=== PATIENT | male | born 1945 | race Caucasian/White ===

== ENCOUNTER 2018-02-03 14:19 | Outpatient (RCR) | payer MEDICARE, SELFPAY ==
--- NOTE | 2018-02-03 15:47 | HP.PTEVAL_ITS ---
Patient's Visit Information SUMEET QUIGLEY is a 72 year old M referred to Physical Therapy by JALEN PAREDES with a diagnosis of Gait instability. Date of Evaluation: 02/03/18 Physical Therapist: Guanakito Nathan PT, - Visit Plan Plan: Discharge - Subjective Subjective: Pt notes he had cancer 3 years ago. Pt reports half way through treatments, he began to notice decreased balance. Pt reports he has had several falls, and notes he falls at least twice a week. Pt reports he tends to fall backwards a lot. Pt reports his vision is not very good and he needs glasses, but does not want to wear any. Pt reports he has good feeling in his feet. Pt notes he has never used an AD and does not want to use one at this time. Pt reports his goal is to get better balance at this time. No pain this date. - Objective Neuro: B LE sensation is WNL to light touch. B pat tendon reflex= 2/3. MMT: B LE 5/5 throughout. Gait: Pt has a neuropathic gait pattern where he lack forward shift. Pt has a normal gait pattern with use of WW. Stairs: No difficulty - Rehabilitation Potential Physical Therapy Diagnosis: Pt has gait instability due to a neuropathic gait pattern Rehabilitation Potential: Good - Anticipated Interventions Thank you for the opportunity to evaluate your patient. For Medicare and Medicare HMO plans, please review the plan of care and approve it. It will need to be FAXED BACK to us at [phone] for Medicare purposes. Please let me know if there are questions or concerns regarding this plan of care. Physician Signature: Date:
== END 2018-02-03 19:00 | disposition home or self-care (01) ==
LOC: PT 14:19
DX: R26.81 Unsteadiness on feet (principal)
CPT/HCPCS: 97161

== ENCOUNTER 2019-10-13 07:32 | Emergency (ER) | payer MEDICARE, SELFPAY ==
[2019-10-13 07:33] VITALS: BP 164/83; PULSE 62; RESP 24; TEMP 37.1; O2SAT 98; BMI 24.4
--- NOTE | 2019-10-13 07:41 | CT_ITS ---
STUDY: CT ABDOMEN AND PELVIS WITHOUT CONTRAST REASON FOR EXAM: Male, 74 years old. Right flank pain today. Hx lung cancer. RADIATION DOSAGE (If Supplied By Facility): CTDIvol = ( 10.87 ) mGy, DLP = ( 586.72 ) mGycm TECHNIQUE: Transaxial images were obtained from the dome of the diaphragm to the symphysis pubis without oral contrast, and without intravenous contrast. Sagittal and coronal images were reconstructed. Individualized dose optimization techniques were used for this CT. COMPARISON: Comparison is made with prior study dated June 16, 2014. FINDINGS: There is a 3 cm x 2.1 cm bulla in the medial aspect of the left lower lobe as well as a tiny left pleural effusion. Coronary artery calcification. Tiny pericardial effusion. Normal liver. Normal gallbladder and extrahepatic biliary system. Normal spleen. Normal pancreas. Normal bilateral adrenal glands. Left perinephric stranding. The right kidney is engorged. There is a 7.2 mm calculus in the upper pole calyx of the right kidney. Mild degree of right hydronephrosis due to a 2 mm calculus in the midportion of the right ureter. Normal left kidney. There is a small hiatal hernia. Normal small intestine. There are multiple colonic diverticula consistent with diverticulosis. The appendix is visualized and appears normal. There is diffuse atherosclerotic calcification of the abdominal aorta and its major visceral branches, without a demonstrated aortic aneurysm. There is evidence of aneurysmal dilatation of the right common iliac artery. This measures 3.2 cm x 3 cm. Normal inferior vena cava. Normal retroperitoneum. Normal urinary bladder. Normal abdominal wall. There are diffuse degenerative changes of the visualized lumbar spine. 40% loss of height of the L5 vertebrae. CT/Abdomen/Pelvis without Cont IMPRESSION: Right hydronephrosis and perinephric stranding due to a 2 mm calculus in the midportion of the right ureter. 7.2 mm calculus in the upper pole calyx of the right kidney. Aneurysmal dilatation of the right common iliac artery. Small pericardial effusion. Electronically Signed: Santi Herrera, at 9:11 EDT , Service support ,
--- NOTE | 2019-10-13 07:42 | ED.VISSUMM ---
- ER Visit Summary Date of Service: 10/13/19 Chief Complaint: [Right flank pain] History of Present Illness: The patient is a 74 M [presents the emergency department with right-sided abdominal pain that started this morning around 5 AM. Patient states the pain came on suddenly and woke him up from sleep. Patient states he vomited 3-4 times. Currently he rates his pain a 5 out of 10. Patient has no history of kidney stones. He is not had any abdominal surgeries. Patient has remote history of lung cancer. Patient continues to smoke. Patient denies urinary symptoms. Patient denies blood in the stool or black tarry stool. Patient denies any fevers or recent illness. Patient felt well prior to going to bed. Patient is nonambulatory.] Physical Examination: [HEENT-PERRLA, EOMI. Cranial nerves II through XII grossly intact. TMs clear. Mucous membranes moist. No adenopathy. Cardiovascular-regular rate and rhythm without murmur or ectopy Lungs-clear to auscultation, chest wall stable without crepitus or subcu emphysema Abdomen-normoactive bowel sounds, soft. Patient has tenderness to the right lower quadrant as well as right upper quadrant. Some mild CVA tenderness on the right. There is no rebound, rigidity, or pedal signs. Extremities-intact ?4, normal range of motion, normal pulses, atraumatic] Test Results: [CBC with differential was normal. Chemistries unremarkable. LFTs were normal. Lactate was slightly elevated 2.3. CT flank showed a 2 mm stone mid right ureter with hydro-nephrosis and some perinephric stranding. Patient also incidentally had a small pericardial effusion. Patient also had a right common iliac artery aneurysm measuring 3.2 x 3 cm.] Urinalysis showed 50-100 RBCs with no signs of infection. Emergency Department Course and Treatment: [On arrival patient was medicated with morphine 4 mg IV, Zofran 4 mg IV, and Toradol 10 mg IV. Patient's pain resolved. Patient advised of findings on CT. The stone is small and there is a greater than 90% chance that he will pass it on his own. Patient was advised of the right common iliac artery aneurysm and recommendation to follow-up with vascular surgeon for follow-up within the next 6 months. The finding of the aneurysm is incidental and do not feel that it is symptomatic.] Treatment Plan: [Patient will be given urine strainers. Patient will be given a prescription for Naprosyn as well as [place]. Patient given referral to urology for follow-up.] Disposition: [Discharged home in stable condition] Impression: [Urolithiasis] This note was generated with [employer] dictation software. It may contain incorrect words, spelling, and punctuation that were not noted in review of the chart prior to signing ED Disposition - Plan for ED Patient: [facility] [Primary Care Provider] -
[2019-10-13 07:56] LABS: Absolute Lymphocyte Count 0.79 X10^3/uL (0.83-4.51); Absolute Neutrophil Count 6.4 X10^3/uL (2.0-7.7); Basophil# 0.03 X10^3/uL; Basophil% 0.4 % (0-1); Eosinophil# 0.12 X10^3/uL; Eosinophils% 1.5 % (0-5); Hematocrit 45.6 % (40-54); Hemoglobin 14.7 g/dL (13.0-16.5); Lymphocyte # 0.79 X10^3/ul (4.0); Lymphocyte % 9.9 % (19-41); Mean Corp Hgb Conc 32.2 g/dL (32-36); Mean Corpuscular Hgb 30.6 pg (27.0-32.0); Mean Platelet Vol. 9.7 fl (6.2-12.0); Monocyte% 7.5 % (0-10); NRBC Flagged by Analyzer 0 % (0-5); Neutrophil # 6.44 X10^3/uL (2.7-7.7); Neutrophil % 80.4 % (47-70); Platelet Count 206 K/mm3 (150-450); RBC Distribution Width CV 13.7 % (11.6-14.6); RBC Distribution Width SD 48.1 fl (35.1-43.9)
[2019-10-13] MEDS: Ondansetron 4 MG/2 ML Vial IV (08:01)
[2019-10-13] MEDS: Ketorolac 30 MG/ML Syringe 10 MG IV (08:02)
[2019-10-13] MEDS: Morphine 4 MG/ML Syringe IV (08:04)
[2019-10-13] MEDS: 0.9% Normal Saline 1,000 ML 125 ML IV (08:04)
[2019-10-13 08:13] LABS: ALB/GLOB Ratio 1.2 RATIO (0.9-2.4); AST(SGOT) 17 U/L (15-37); Alanine Aminotransfer ALT/SGPT 19 U/L (16-61); Albumin, Serum 3.9 g/dL (3.2-5.0); Alkaline Phosphatase 103 U/L (45-117); Anion Gap 8 (5-15); BUN 15 mg/dL (7-18); BUN/Creat Ratio 15.7 RATIO (10-20); Calcium,Total 9.3 mg/dL (8.5-10.1); Chloride 109 mmol/L (98-107); Creatinine, Serum 0.96 mg/dL (0.70-1.30); EST Glomerular Filtration Rate 81 mL/min (>60); Est Glom Filt Rate - Afr Amer 98 mL/min (>60); Estimated Creatinine Clearance 71.85 ml/min; Globulin 3.3 g/dL (2.2-4.2); Glucose 134 mg/dL (74-106); Potassium 3.5 mmol/L (3.5-5.1); Protein, Total 7.2 g/dL (6.4-8.2); Sodium Level 145 mmol/L (136-145)
[2019-10-13 08:46] LABS: Lactic Acid 2.3 mmol/L (0.4-1.9)
--- NOTE | 2019-10-13 09:21 | ED.RN ---
dr gibson lactic acid. no further orders pending at this time. continue current plan of care
[2019-10-13 09:39] LABS: Color, Urine Yellow (Yellow); Glucose, Dipstick Normal (Normal); Ketone-Dipstick 5 mg/dl (Negative); Leukocyte Esterase-Dipstick Negative /ul (Negative); Nitrite-Dipstick Negative (Negative); Occult Blood-Urine 250 /ul (Negative); Protein-Dipstick 15 mg/dl (Negative); Specific Gravity, Urine 1.015 (1.002-1.030); Urine Bilirubin Dipstick Negative (Negative); Urine Clarity Sl. Cloudy (Clear); Urine Urobilinogen Normal (Normal); Urine pH 6.5 (5.0 - 8.0)
[2019-10-13 09:58] LABS: Red Blood Cells-Urine 50-100 SEEN /hpf (0-5)
[2019-10-13 09:59] LABS: Bacteria 1+ /hpf (None Seen); Mucous, Urine 1+ /hpf (<or=2+); Squamous Epithelial Cells - UA 0-5 SEEN /hpf (0-5); White Blood Cells 0-5 SEEN /hpf (0-5)
[2019-10-13 10:01] LABS: Triple Phosphate Crystals Ur 1+ /hpf (<or=1+)
--- NOTE | 2019-10-13 10:04 | ED.DEP ---
ED Disposition - Plan for ED Patient: Instructions: ED Renal Stone w Colic Prescriptions: Naproxen [Naprosyn] 500 mg PO BID PRN #20 tab Transmission Status: Pending to [facility]RA[facility] Hydrocodone Bitart/Apap 5-325 [Morrison 5MG-325MG] 1 tablet PO Q4H PRN PRN 2 Days #15 tablet PRN Reason: Pain Transmission Status: Received by [facility]AN [facility]RA[facility]errals[facility] [Primary Care Provider] - Bright Lee MD [STAFF PHYSICIAN] - 3-5 Days
[2019-10-13 10:19] VITALS: BP 140/79; PULSE 59; RESP 18; O2SAT 96
[2019-10-13 11:03] VITALS: BP 146/52; PULSE 71; RESP 20; O2SAT 97
--- NOTE | 2019-10-13 11:16 | ED.RN ---
THIS NURSE REVIEWED D/C INSTRUCTIONS WITH PT. PT VERBALIZED UNDERSTANDING OF INSTRUCTIONS. IV D/C. IV CATHETER INTACT. PT TOLERATED WELL. PT DENIES FURTHER NEEDS OR QUESTIONS AT THIS TIME. REPORT GIVEN TO EMS CREW
[2019-10-13 12:13] LABS: Reflex Lactate? Y
== END 2019-10-13 11:17 | disposition home or self-care (01) ==
LOC: ED 08:50
PROVIDERS: Emergency Provider Emergency Medicine
DX: N13.2 Hydronephrosis with renal and ureteral calculous obstruction (principal); I31.3 Pericardial effusion (noninflammatory); I72.3 Aneurysm of iliac artery; Z85.118 Personal history of other malignant neoplasm of bronchus and lung; Z72.0 Tobacco use
CPT/HCPCS: 74176; 80053; 81001; 83605; 85025; 96361; 96374; 96375; 99285; J7030; A4216; J2405

== ENCOUNTER 2020-07-24 14:46 | Outpatient (RCR) | payer MEDICARE, SELFPAY ==
[2020-07-24] MEDS: COVID-19 VACC, MRNA(PFIZER)/PF 30 MCG/0.3 ML SYRINGE IM (08:33)
[2020-08-14] MEDS: COVID-19 VACC, MRNA(PFIZER)/PF 30 MCG/0.3 ML SYRINGE IM (08:18)
== END 2020-10-23 23:59 ==
LOC: IMMUN 14:46
PROVIDERS: Referring Provider Family Medicine; Visit Provider Family Medicine
DX: Z23 Encounter for immunization (principal)
CPT/HCPCS: 0001A; 0002A; 91300

== ENCOUNTER 2021-11-10 03:37 | Emergency (ER) | payer MEDICARE, SELFPAY ==
[2021-11-10 03:38] VITALS: BP 153/90; PULSE 78; RESP 18; TEMP 36.6; O2SAT 98; BMI 24.0
--- NOTE | 2021-11-10 03:47 | ED.VIS.LOWEX ---
HPI History of Present Illness Chief Complaint: Fall Narrative Narrative: 76-year-old male presenting with right hip pain. He states in the right inguinal region. He states he has a history of falls and over the last couple days has fallen but now he notes his pain in the right inguinal area. He called EMS to come help him up. Apparently he sometimes walks and sometimes uses a wheelchair. They helped him to his wheelchair however he was complaining of pain. He was able to stand and transfer to the cot apparently. He denies head injury or LOC. He feels otherwise well. He has a history of abnormal gait and falls in the past [facility] Medical History Insomnia Lung cancer Home Medications ascorbic acid (vitamin C) 500 mg tablet 500 mg PO DAILY 12/07/14 [History Last Taken Unknown] multivitamin with folic acid 400 mcg tablet 1 tab PO DAILY 12/07/14 [History Last Taken Unknown] amlodipine 5 mg tablet 5 tab PO DAILY 11/10/21 [History Last Taken Unknown] temazepam 15 mg capsule (Restoril) 15 mg PO QHS PRN sleep 11/10/21 [History Last Taken Unknown] Allergy/AdvReac Type Severity Reaction Status Date / Time No Known Allergies Allergy Verified 10/23/20 14:50 Family History Father Myocardial infarction Brother Shanice Gehrig disease Social History Smoking Status: Current every day smoker tobacco type: cigarettes alcohol intake: current alcohol intake frequency: holidays/special occasions only Alcohol type: beer substance use type: does not use what type of physical activity do you participate in: none ROS ROS ED Constitutional Constitutional ED: Denies chills or fever(s) Eyes Eyes: Denies change in vision or diplopia ENT ENT ED: Denies rhinorrhea or sore throat Cardiovascular Cardiovascular: Denies chest pain or palpitations Respiratory/Chest Respiratory/Chest: Denies cough or dyspnea Gastrointestinal Gastrointestinal: Denies abdominal pain or constipation Genitourinary Genitourinary ED: Denies dysuria Musculoskeletal Musculoskeletal: Reports other Details: Right hip pain Integumentary Denies abscess Neurologic Neurologic: Denies headache(s) Psychiatric Psychiatric: Denies anxiety or depression EXAM Physical Exam Const Vital Signs: 11/10/21 03:38 11/10/21 03:42 11/10/21 05:34 Temperature 98 F 98.0 F Temperature Source Oral Pulse Rate 78 66 Respiratory Rate 18 18 Respiratory Effort Normal Non-Labored Respiratory Depth Normal Respiratory Pattern Normal Blood Pressure 153/90 H 130/66 H Blood Pressure Mean 111 87 Pulse Ox 98 94 Oxygen Delivery Method Room Air 11/10/21 05:38 Temperature Temperature Source Pulse Rate Respiratory Rate Respiratory Effort Respiratory Depth Respiratory Pattern Blood Pressure 139/84 H Blood Pressure Mean 102 Pulse Ox Oxygen Delivery Method Positive well nourished General Appearance ED: NAD HEENT Reports moist mucous membranes Resp normal respiratory effort Auscultation: Negative for rales, rhonchi or wheezes Cardio regular rate and regular rhythm Extremity Extremity Narrative: Tenderness to palpation in the right inguinal region and right gluteal region. There is no pain over the greater trochanter. The right leg is not shortened and externally rotated. Patient unable to flex his hip off the bed. Neuro oriented x3 and CN's II-XII intact bilaterally Sensorium / Orientation: alert Psych mental status grossly normal Skin Lesions: no lesions Rashes: no rashes MDM MDM MDM Narrative Medical decision making narrative: -year-old male with history of gait instability with regular falls presents after having increased pain in the right hip after falling overnight. EMS transported him because he was having pains when they transported him to his wheelchair which he uses from time to time. Patient given morphine and Zofran. Blood work is obtained and his CBC and BMP are unremarkable. My interpretation of the right hip x-ray shows a right acetabular fracture involving the right pubic rami both upper and lower with displacement medially. The radiologist reads this as well and agrees. I spoke with Dr. Jimenez who stated that they do not have anybody who can care for this kind of complex fracture at [facility]. [facility] and Dr. Briseno accepted transfer. I did obtain a CT of the pelvis which did show complex right acetabular fractures with involvement of the roof, anterior, posterior, and medial acetabulum. There is some mild intrapelvic and extraperitoneal hematomas. There is a complex inferior right pubic rami fracture which is comminuted. I did call back Dr. Briseno to discuss the CT findings. Patient is clinically stable and his blood work is normal. She recommended to continue to transfer him to the medical floor. She is the on-call trauma surgeon and will see him on arrival. Estimated transport time is 0 730. Impression: 1. Mechanical fall 2. History of gait instability 3. Comminuted right acetabular fracture 4. Comminuted right inferior pubic rami fracture Lab Data Attestation: I reviewed the patient's lab results. Labs: Laboratory Results - last 24 hr 11/10/21 11/10/21 03:50 03:50 WBC 7.5 RBC 4.20 L Hgb 13.3 Hct 40.9 MCV 97.4 H MCH 31.7 MCHC 32.5 RDW Std Deviation 47.3 H RDW Coeff of Roberto 13.2 Plt Count 146 L MPV 10.0 Immature Gran % (Auto) 0.300 Neut % (Auto) 69.8 Lymph % (Auto) 11.3 L [place] % (Auto) 12.2 H Eos % (Auto) 5.7 H Baso % (Auto) 0.7 Absolute Neuts (auto) 5.3 Absolute Lymphs (auto) 0.85 Nucleated RBC % 0 Sodium 140 Potassium 3.8 Chloride 108 H Carbon Dioxide 23.0 Anion Gap 9 BUN 20 H Creatinine 1.05 Estim Creat Clear Calc 63.64 Est GFR (MDRD) Af Amer 88 Est GFR (MDRD) Non-Af 73 BUN/Creatinine Ratio 19.0 Glucose 86 Calcium 8.9 Radiography Diagnostic Testing: Clinical Impression(s) from Imaging Studies Hip/Pelvis X-Ray 11/10/21 04:00 IMPRESSION: 1. Intact right femur. 2. Complex fracture of the right pelvis involving at least the medial wall of the right acetabulum at the junction of the acetabulum and rami, with an inwardly displaced sharp fracture fragment projecting over the lateral right pelvis. CT is suggested for further evaluation due to the complex appearance. Electronically Signed: Ladonna Baugh MD at 4:19 EDT , ADDENDUM: 11/10/21 [id number] IMPRESSION: 1. Intact right femur. 2. Complex fracture of the right pelvis involving at least the medial wall of the right acetabulum at the junction of the acetabulum and rami, with an inwardly displaced sharp fracture fragment projecting over the lateral right pelvis. CT is suggested for further evaluation due to the complex appearance. N.B. : Zina Manning/YAMINI castrejon OT, confirmed on 11/10/2021 04:28:59 (ET) that the healthcare facility has received the radiology report. Electronically Signed: Ladonna Baugh MD at 4:19 EDT , Pelvis CT 11/10/21 04:27 IMPRESSION: 1. Complex right acetabular fractures with multiple radiating fracture lines as described. Including roof, anterior, posterior and especially medial acetabular margins. 2. Mild intrapelvic-extraperitoneal hematoma. 3. Complex comminuted fracture of the right inferior pubic ramus. 4. Mild aneurysmal dilatation of aortoiliac vessels, and especially aneurysmal dilatation of the right internal iliac artery, stable. Electronically Signed: Ladonna Baugh MD at 5:23 EDT , Discharge Plan Triage Chief Complaint: Fall ED Provider: Teja Ty Dx/Rx/DC Orders Prescriptions: No Action ascorbic acid (vitamin C) 500 MG tablet 500 mg PO DAILY multivitamin with folic acid 1 TABLET tablet 1 tab PO DAILY amlodipine 5 mg tablet 5 tab PO DAILY Label Comments: take 1 tablet by mouth once daily temazepam [Restoril] 15 mg capsule 15 mg PO QHS PRN (Reason: sleep) Primary Care Provider: Luis Castillo Referrals: Nidhi Hermosillo MD [[facility]] -
[2021-11-10] MEDS: Ondansetron 4 MG/2 ML Vial IV (03:50)
[2021-11-10] MEDS: Morphine 4 MG/ML Syringe IV (03:50)
[2021-11-10 03:53] LABS: Absolute Lymphocyte Count 0.85 X10^3/uL (0.83-4.51); Absolute Neutrophil Count 5.3 X10^3/uL (2.0-7.7); Basophil# 0.05 X10^3/uL; Basophil% 0.7 % (0-1); Eosinophil# 0.43 X10^3/uL; Eosinophils% 5.7 % (0-5); Hematocrit 40.9 % (40-54); Hemoglobin 13.3 g/dL (13.0-16.5); Lymphocyte # 0.85 X10^3/ul (0.83-4.51); Lymphocyte % 11.3 % (19-41); Mean Corp Hgb Conc 32.5 g/dL (32-36); Mean Corpuscular Hgb 31.7 pg (27.0-32.0); Mean Corpuscular Volume 97.4 fL (80-94); Monocyte# 0.92 X10^3/uL; Monocyte% 12.2 % (0-10); NRBC Flagged by Analyzer 0 % (0-5); Neutrophil # 5.27 X10^3/uL (2.7-7.7); Neutrophil % 69.8 % (47-70); Platelet Count 146 K/mm3 (150-450); RBC Distribution Width CV 13.2 % (11.6-14.6); RBC Distribution Width SD 47.3 fl (35.1-43.9); White Blood Count 7.5 K/mm3 (4.4-11.0)
--- NOTE | 2021-11-10 04:00 | RAD_ITS ---
ACR Level 3 findings have been noted. An addendum which confirms receipt of the report will follow. EXAM: XR RIGHT HIP WITH PELVIS WHEN PERFORMED, 2 OR 3 VIEWS CLINICAL INDICATION: hip pain TECHNIQUE: Two or three views of the right hip with pelvis when performed. This report was created using [employer] report generation technology. COMPARISON: None. FINDINGS: BONES/JOINTS: No right hip fracture is demonstrated. The pubic rami appear asymmetric and there is a fracture fragment projecting medially from the medial aspect of the right acetabulum on the frontal view, apparently fracture at the junction of the right acetabulum and superior and inferior pubic rami. CT is suggested. No destructive or sclerotic lesions. Note that overlapping bowel shadows may however obscure fine detail. Sacroiliac joint is unremarkable. No widening of the pubic symphysis. SOFT TISSUES: Unremarkable. No soft tissue swelling or gas. OTHER FINDINGS: 3 views. RAD/HIP, UNI W/ Pelvis 2-3 Views IMPRESSION: 1. Intact right femur. 2. Complex fracture of the right pelvis involving at least the medial wall of the right acetabulum at the junction of the acetabulum and rami, with an inwardly displaced sharp fracture fragment projecting over the lateral right pelvis. CT is suggested for further evaluation due to the complex appearance. Electronically Signed: Ladonna Baugh MD at 4:19 EDT ,
[2021-11-10 04:07] LABS: Anion Gap 9 (5-15); BUN 20 mg/dL (7-18); Calcium,Total 8.9 mg/dL (8.5-10.1); Chloride 108 mmol/L (98-107); Creatinine, Serum 1.05 mg/dL (0.70-1.30); EST Glomerular Filtration Rate 73 mL/min (>60); Est Glom Filt Rate - Afr Amer 88 mL/min (>60); Estimated Creatinine Clearance 63.64 ml/min; Glucose 86 mg/dL (74-106); Potassium 3.8 mmol/L (3.5-5.1); Sodium Level 140 mmol/L (136-145)
--- NOTE | 2021-11-10 04:27 | CT_ITS ---
EXAM: CT PELVIS WITHOUT INTRAVENOUS CONTRAST CLINICAL INDICATION: hip fracture TECHNIQUE: Helically acquired images were obtained of the pelvis without intravenous contrast. This CT exam was performed using one or more of the following dose reduction techniques: automated exposure control, adjustment of the mA and/or kV according to patient size, and/or use of iterative reconstruction technique. This report was created using [employer] report generation technology. RADIATION DOSE: CTDIvol = 16.85 mGy, DLP = 529.97 mGy-cm COMPARISON: Abdomen and pelvis CT October 13, 2019, and prior plain films today showing complex right acetabular and pelvic fractures. FINDINGS: BOWEL: Marked sigmoid diverticulosis, no evidence of acute diverticulitis. No bowel distention. APPENDIX: No evidence of acute appendicitis. INTRAPERITONEAL SPACE: Unremarkable. No ascites or other fluid collection. No free air. BLADDER: Unremarkable. REPRODUCTIVE: Mild prostatomegaly, 4.8 cm transverse. BONES/JOINTS: Complex fractures of right acetabulum and inferior right pubic ramus. Fractures involving the roof, anterior, medial and posterior sanchez of the right acetabulum. Mild intrapelvic-extraperitoneal intramuscular hematoma and more superior mild retroperitoneal intrapelvic hematoma. Right internal obturator muscle 2.8 cm thickness, 1 cm thickness at this level on the left. More inferior soft tissue hematoma medial to the displaced medial acetabulum, 1.4 cm maximum thickness. No mass effect on the urinary bladder or prostate. Intact right femur. Chronic-appearing compression deformity of L5. Intact sacrum. Fusion of the SI joints. No suspicious lytic or blastic abnormality. SOFT TISSUES: Mild fat in the inguinal rings. VASCULATURE: Mild aneurysmal dilatation of the distal infrarenal aorta, 3.1 cm AP by 3 cm transverse, it was similar on prior exam. Similar mildly dilated common iliac arteries and aneurysmal right internal iliac artery, right internal iliac artery 3 cm AP, it was 3 cm. LYMPH NODES: Unremarkable. No enlarged lymph nodes. CT/Pelvis without IV Contrast IMPRESSION: 1. Complex right acetabular fractures with multiple radiating fracture lines as described. Including roof, anterior, posterior and especially medial acetabular margins. 2. Mild intrapelvic-extraperitoneal hematoma. 3. Complex comminuted fracture of the right inferior pubic ramus. 4. Mild aneurysmal dilatation of aortoiliac vessels, and especially aneurysmal dilatation of the right internal iliac artery, stable. Electronically Signed: Ladonna Baugh MD at 5:23 EDT ,
[2021-11-10] MEDS: Lidocaine Jelly 2% 20 ML Syringe (URO-JET) 1 APPLIC TOPICAL (04:50)
[2021-11-10 05:34] VITALS: BP 130/66; PULSE 66; RESP 18; TEMP 36.7; O2SAT 94
[2021-11-10 05:38] VITALS: BP 139/84
[2021-11-10 07:00] VITALS: BP 136/66; PULSE 70; RESP 18; O2SAT 95
[2021-11-10 07:48] VITALS: BP 133/66; PULSE 70; RESP 18; O2SAT 95
== END 2021-11-10 07:51 | disposition short-term general hospital (02) ==
PROVIDERS: Emergency Provider Student in an Organized Health Care Education/Training Program; PCP Internal Medicine; Visit Provider Student in an Organized Health Care Education/Training Program
DX: S32.491A Other specified fracture of right acetabulum, initial encounter for closed fracture (principal); S32.591A Other specified fracture of right pubis, initial encounter for closed fracture; W18.30XA Fall on same level, unspecified, initial encounter; F17.210 Nicotine dependence, cigarettes, uncomplicated; R29.6 Repeated falls
CPT/HCPCS: 51702; 72192; 73502; 80048; 85025; 96374; 96375; 99285; A4216; J2405

== ENCOUNTER 2021-11-11 18:24 | Inpatient (IN) | payer MEDICARE, SELFPAY ==
[2021-11-11 18:28] VITALS: BP 124/75; PULSE 76; RESP 20; TEMP 36.9; O2SAT 92
--- NOTE | 2021-11-11 18:29 | NURSING ---
Pt admitted at this time, per nurse to nurse report peralta catheter was pulled at 0930 [facility] nurse pt has not voided since, upon arrival pt noted to be dry and also stated he had not voided since his peralta was pulled, bladderscan showed 128
--- NOTE | 2021-11-11 20:00 | PCM.HP.STD ---
HPI - General General Date of Admission: 11/11/21 Date of Service: 11/12/21 Chief Complaint: Here for rehab. HPI Narrative 11/10/2021 SUMEET QUIGLEY, is a 76 Male who presents to [facility] Emergency Department with fall. Fall, right hip pain, right inguinal pain, called EMS. He walks some, uses wheelchair some. Able to stand, transfer to cot. Morphine, Zofran given. CBC okay, BMP okay. X-ray showed right hip fracture, right pelvis fracture. Fracture complex, recommend transfer to tertiary center. 11/10/2021 Admit to [facility]. No surgery recommended. 11/11/2021 Admit to TCU with debility, here for rehabilitation, strengthening, prior to discharge home alone. [facility] Medical History (Updated 11/11/21 @ 20:[address] Anthony Sorenson MD) Closed right hip fracture Hypertension Insomnia Lung cancer Paraneoplastic cerebellar ataxia Pelvis fracture, right Home Medications ascorbic acid (vitamin C) 500 mg tablet 500 mg PO DAILY Supplement 12/07/14 [History Last Taken Unknown] multivitamin with folic acid 400 mcg tablet 1 tab PO DAILY Supplement 12/07/14 [History Last Taken Unknown] amlodipine 5 mg tablet 1 tab PO DAILY BP 11/10/21 [History Last Taken Unknown] temazepam 15 mg capsule (Restoril) 15 mg PO QHS PRN sleep 11/10/21 [History Last Taken Unknown] apixaban 2.5 mg tablet 2.5 mg PO BID Anti Coagulant 11/11/21 [History Last Taken Unknown] oxycodone 5 mg tablet 5 mg PO Q6H PRN Pain 11/11/21 [History Last Taken Unknown] Allergy/AdvReac Type Severity Reaction Status Date / Time No Known Allergies Allergy Verified 10/23/20 14:50 Family History Father Myocardial infarction Brother Shanice Gehrig disease Surgical History no surgical history no surgical history Social History (Updated 11/11/21 @ 20:[address] Anthony Sorenson MD) household members: none Smoking Status: Current every day smoker tobacco type: cigarettes alcohol intake: current alcohol intake frequency: holidays/special occasions only Alcohol type: beer substance use type: does not use what type of physical activity do you participate in: none ROS Constitutional Constitutional: Denies chills, fever(s) or weight gain ENT HEENT: Denies headache(s), nasal congestion or nasal discharge Cardiovascular Cardiovascular: Denies chest pain or palpitations Respiratory/Chest Respiratory/Chest: Denies cough, excessive phlegm production or shortness of breath with exertion Gastrointestinal Gastrointestinal: Denies abdominal pain, nausea or vomiting Genitourinary Genitourinary: Denies dysuria Musculoskeletal Musculoskeletal: Denies joint pain or joint swelling Integumentary Integumentary: Denies rash or wounds Neurologic Neurologic: Denies focal weakness, numbness or tingling Psychiatric Psychiatric: Denies anxiety, auditory hallucinations, depression, homicidal ideation or suicidal ideation Vital Signs Vital Signs Vital Signs: 11/11/21 18:28 Temperature 98.4 F Temperature Source Temporal Pulse Rate 76 Respiratory Rate 20 H Blood Pressure 124/75 H Blood Pressure Mean 91 Blood Pressure Source Monitor Blood Pressure Position Sitting Blood Pressure Location Right Arm Pulse Ox 92 Oxygen Delivery Method Room Air Physical Exam Const alert General Appearance: cooperative HEENT normocephalic Eyes PERRL and EOMs intact bilaterally Neck supple, no JVD and no carotid bruits Resp normal respiratory effort, normal air movement and clear to auscultation bilaterally Cardio regular rate and regular rhythm GI normal to inspection, nondistended, normoactive bowel sounds, non-tender and non-distended Extremity normal capillary refill General Extremity: Negative for edema Skin no rashes or lesions noted General Skin Exam: no breakdown Psych affect normal Appearance: appropriate Results Lab / Micro Data Result Diagrams: 11/12/21 05:17 11/12/21 05:17 Micro: Microbiology 11/11/21 18:44 Nasal Secretion SARS-CoV-2 Antigen (Rapid) - Final Assessment & Plan Assessment/Plan (1) Pelvis fracture, right: (2) Closed right hip fracture: (3) Lung cancer: (4) Insomnia: (5) Debility: (6) Paraneoplastic cerebellar ataxia: (7) Hypertension: PLAN: Plan 76 year old male with below past medical history hospitalized for right hip fracture, right pelvis fracture, surgery not recommended, admitted to TCU with debility, here for rehabilitation, strengthening, prior to discharge home alone. Debility - PT/OT. Pain - Tylenol 1000mg q6h prn pain (1-3), Tramadol 50mg q6h prn pain (4-5), Oxycodone 5mg q4h prn pain (6-10). Bowel - Senna/colace 2 tablets bid, Dulcolax 10mg daily prn. Adult immunization - Administer pneumonia vaccine, covid19 vaccine, flu vaccine as appropriate. DVT prophylaxis - Eliquis 2.5mg bid thru 12/15/2021. Hypertension - Amlodipine 5mg daily. Vitamin C deficiency - Vitamin C 500mg daily. Nutrition - MVI daily. Insomnia - Temazepam 15mg qhs prn, stable chronic terminologist use, GDR not recommended. Lung cancer - Treated with radiation, chemotherapy. Paraneoplastic cerebellar ataxia - Treated with plasmapheresis x 5 at [facility], not helpful. BPH/urinary retention - Rx Tamsulosin 0.4mg daily, straight cath prn.
[2021-11-11 20:04] VITALS: BP 132/84; PULSE 77; RESP 16; TEMP 36.6; O2SAT 94
[2021-11-11] MEDS: Senna/Docusate Sodium 1 Tablet 2 TABLET PO (21:46)
[2021-11-11] MEDS: Temazepam 15 MG Capsule PO (21:46)
--- NOTE | 2021-11-12 | NURSING ---
PT unable to void on own. I bladder scanned patient and he had over 500ml in his bladder. Pt tried to use the urinal and was unsuccessful. I called and received an order to straight cath pt. I went back into patients room to straight cath and patient refused and wanted to wait until morning. This nurse will try again in the morning.
[2021-11-12 04:50] VITALS: BP 144/67; PULSE 67
--- NOTE | 2021-11-12 05:00 | NURSING ---
Pt was straight cathed and had 350ml out.
[2021-11-12] MEDS: Ascorbic Acid 500 MG Tablet PO (05:08)
[2021-11-12] MEDS: APIXABAN 2.5 MG TABLET PO ×2 (05:08→17:55)
[2021-11-12] MEDS: amLODIPine 5 MG Tablet PO (05:08)
[2021-11-12] MEDS: Senna/Docusate Sodium 1 Tablet 2 TABLET PO (05:08)
[2021-11-12 05:43] LABS: Absolute Lymphocyte Count 0.81 X10^3/uL (0.83-4.51); Absolute Neutrophil Count 4.8 X10^3/uL (2.0-7.7); Basophil# 0.05 X10^3/uL; Basophil% 0.7 % (0-1); Eosinophil# 0.26 X10^3/uL; Eosinophils% 3.7 % (0-5); Hematocrit 38.8 % (40-54); Hemoglobin 12.9 g/dL (13.0-16.5); Lymphocyte # 0.81 X10^3/ul (0.83-4.51); Lymphocyte % 11.6 % (19-41); Mean Corp Hgb Conc 33.2 g/dL (32-36); Mean Corpuscular Hgb 32.3 pg (27.0-32.0); Mean Platelet Vol. 10.3 fl (6.2-12.0); Monocyte# 1.01 X10^3/uL; Monocyte% 14.5 % (0-10); NRBC Flagged by Analyzer 0 % (0-5); Neutrophil # 4.83 X10^3/uL (2.7-7.7); Neutrophil % 69.2 % (47-70); Platelet Count 157 K/mm3 (150-450); RBC Distribution Width SD 46.4 fl (35.1-43.9)
[2021-11-12 06:07] LABS: Anion Gap 8 (5-15); BUN 24 mg/dL (7-18); BUN/Creat Ratio 26.9 RATIO (10-20); Calcium,Total 8.7 mg/dL (8.5-10.1); Chloride 106 mmol/L (98-107); Creatinine, Serum 0.89 mg/dL (0.70-1.30); EST Glomerular Filtration Rate 87 mL/min (>60); Est Glom Filt Rate - Afr Amer 106 mL/min (>60); Glucose 88 mg/dL (74-106); Potassium 3.9 mmol/L (3.5-5.1); Sodium Level 138 mmol/L (136-145)
[2021-11-12] MEDS: Multivitamins,Therapeutic Tablet 1 TABLET PO (07:58)
[2021-11-12] MEDS: Tuberculin,Purif.prot.deriv. 50 TU/ML Vial 0.1 ML ID (09:07)
[2021-11-12] MEDS: oxyCODONE 5 MG Tablet PO (10:04)
--- NOTE | 2021-11-12 10:10 | PHA.CONS_ITS ---
TCU RX Drug Regimen Review Subjective: [76yom with R hip/pelvis fracture, not treated with surgery. Admitted to TCU for strengthening and conditioning s/p fracture.] Objective: Allergies No Known Allergies Allergy (Verified 10/23/20 14:50) Current Medications Generic Name Dose Route Start Last Admin Trade Name Freq PRN Reason Stop Dose Admin Acetaminophen 1,000 mg 11/11/21 20:11 Acetaminophen 500 Mg Tablet PO Q6H PRN PRN Pain Score 1-3 Amlodipine Besylate 5 mg 11/12/21 06:00 11/12/21 05:08 Amlodipine 5 Mg Tablet PO 5 mg DAILY PEDRO Administration Apixaban 2.5 mg 11/12/21 06:00 11/12/21 05:08 Apixaban 2.5 Mg Tablet PO 12/15/21 23:55 2.5 mg BID PEDRO Administration Ascorbic Acid 500 mg 11/12/21 06:00 11/12/21 05:08 Ascorbic Acid 500 Mg Tablet PO 500 mg DAILY PEDRO Administration Bisacodyl 10 mg 11/11/21 20:11 Bisacodyl 5 Mg Tablet PO DAILY PRN CONSTIPATION Multivitamins 1 tablet 11/12/21 08:00 11/12/21 07:58 Multivitamins,Therapeutic Tablet PO 1 tablet 0800 PEDRO Administration Oxycodone HCl 5 mg 11/11/21 20:12 11/12/21 10:04 Oxycodone 5 Mg Tablet PO 5 mg Q4H PRN Administration Pain Score 6-10 Senna/Docusate Sodium 2 tablet 11/11/21 20:15 11/12/21 05:08 Senna/Docusate Sodium 1 Tablet PO 2 tablet BID PEDRO Administration Sodium Chloride 10 - 40 ml 11/11/21 18:28 0.9% Saline Lock 10 Ml Syringe IV UD PRN SALINE FLUSH Tamsulosin HCl 0.4 mg 11/12/21 17:30 Tamsulosin Hcl 0.4 Mg Capsule PO DAILY@1730 PEDRO Temazepam 15 mg 11/11/21 18:37 11/11/21 21:46 Temazepam 15 Mg Capsule PO 15 mg QHS PRN Administration sleep Tramadol HCl 50 mg 11/11/21 20:11 Tramadol 50 Mg Tablet PO Q6H PRN PRN Pain Score 4-5 Tuberculin PPD 0.1 ml 11/19/21 10:00 Tuberculin,Purif.Prot.Deriv. 50 Tu/Ml Vial ID 11/19/21 10:01 X1 ONE Problem List (Last Updated 11/11/21 @ 20:[address] Anthony Sorenson MD) Debility (Acute) Paraneoplastic cerebellar ataxia (Acute) Hypertension (Chronic) Pelvis fracture, right (Acute) Closed right hip fracture (Acute) Lung cancer (Acute) Insomnia (Chronic) Vital Signs Temp Pulse Resp BP Pulse Ox 97.8 F 67 16 144/67 H 94 11/11/21 20:04 11/12/21 04:50 11/11/21 20:04 11/12/21 04:50 11/11/21 20:04 Oxygen Delivery Method Room Air Sodium 138 mmol/L (136-145) 11/12/21 05:17 Potassium 3.9 mmol/L (3.5-5.1) 11/12/21 05:17 Chloride 106 mmol/L (98-107) 11/12/21 05:17 Carbon Dioxide 24.0 mmol/L (21.0-32.0) 11/12/21 05:17 Anion Gap 8 (5-15) 11/12/21 05:17 BUN 24 mg/dL (7-18) H 11/12/21 05:17 Creatinine 0.89 mg/dL (0.70-1.30) 11/12/21 05:17 Est GFR (MDRD) Af Amer 106 mL/min (>60) 11/12/21 05:17 Est GFR (MDRD) Non-Af 87 mL/min (>60) 11/12/21 05:17 BUN/Creatinine Ratio 26.9 RATIO (10-20) H 11/12/21 05:17 Glucose 88 mg/dL (74-106) 11/12/21 05:17 Assessment/Plan: 1. R hip/pelvis fracture - Pt currently on APAP 1gm p q6h prn pain 1-3, tramadol 50mg po q6h prn 4-5 and oxycodone 5mg po q4h prn pain 6-10. Received one dose of oxycodone on 11/12 for pain score of 8/10 so far since admission. Scr = 0.89mg/dl. AST/ALT nl in 2019. Continue to monitor renal function (tramadol), pain scores, prn usage of medications and ability to participate in PT/function, sx of constipation, mental status, sedation (oxycodone). 2. Hypertension - currently on amlodipine 5mg po daily. BP has ranged from 124/75-144/67, HR 67-77. Continue to monitor BP, HR, sx of peripheral edema. 3. BPH/Urinary retention - currently on tamsulosin 0.4mg po daily. Noted that pt required straight cath due to inability to void. BP okay. Continue to monitor ability to void independently, symptoms of orthostasis/dizziness. 4. Constipation - currently on sennaS 2 tabs po bid and bisacodyl 10mg po daily prn. Last BM per nursing notes was on 11/08. No prn administration of bisacodyl since admit. Consider giving bisacodyl if no BM soon. Continue to monitor sx of constipation/diarrhea. 5. DVT prophylaxis - currently on apixiban 2.5mg po bid. Scr =0.89, Hgb=12.9. Continue to monitor renal function, hemoglobin periodically, sx of VTE (leg swe lling, pain, CP, SOB) as well as symptoms of bleeding. 6. Health maintenance - currently on vitamin c 500mg po daily and MVI daily. 7. Smoking cessation - pt is an everyday smoker, please monitor for symptoms of nicotine withdrawal and consider initiation of nicotine transdermal patch or gum if needed for patient comfort/symptoms. Assessment/Plan for indications treated with psychotropic medications: 8. Insomnia - pt is on temazepam 15mg po qhs prn sleep. Pt does have recent history of fall and med can contribute to falls. However, reviewed PCP note from 2020 which stated that pt has h/o significant insomnia with treatment failure of multiple prior medications for insomnia. Continue to re-evaluate benefit versus risk of medication and consider taper to lower dose of medication if possible. GDR not recommended by attending physician at this time due to chronic stable use. Continue to monitor is sleep pattern, daytime drowsiness, falls. Medical chart and medication regimen reviewed. The following medication irregularities or issues were identified: - Smoking cessation - pt is an everyday smoker, please monitor for symptoms of nicotine withdrawal and consider initiation of nicotine transdermal patch or gum if needed for patient comfort/symptoms. Date of Note:: 11/12/21
[2021-11-12 14:10] VITALS: BP 143/81; PULSE 81; RESP 16; TEMP 36.6; O2SAT 95
--- NOTE | 2021-11-12 15:08 | CASEMGMT ---
Social Work Met with patient to complete initial assessment. Introduced self and role. Verified contacts. Discussed code status and MOLST form. Pt confirms full code. Verbally answered the MOLST questions, but stated he refuses to sign the form and to write 'refused to sign'. Communicated to , form placed in chart still indicating pt's verbal wishes. [facility]/14 and continued stay is not guaranteed with each review. The goal is for pt to return home alone. However, does not have any family or friends to assist. Pt has named friend, TONI, as HCPOA and primary contact, but he will not physically assist pt at home. Pt has a 2 story condo that he has not been able to get to the 2nd flr since 2018. The full bathroom is on the 2nd flr. Pt sleeps on the 1st, uses the 1/2 bathroom and sponge bathes. Pt was at w/c level prior but could SPT and use a FWW. The goal is for pt to return to [facility] to safely DC. During assessment, pt was vocal about his lack of strength, wanting to lay in the bed and 'heal'. Pt stated I don't know why I need to occupational therapy when I'm not working. SW educated to goals of therapy, PT and OT. Explained OT works on showering. Pt replied, I can't shower on my own. I can't even get to the bed or chair on my own. SW acknowledged and confirmed that is why pt is admitted so he can improve on those functional tasks. Pt then stated, Oh I know, I don't want to leave this place. Pt's mood was gruff, frustrated, annoyed during the assessment. Pt was not interested in listening to this worker's explanation and interest in getting to know pt. SW to continue to follow. Augustina Marrero, ELECTRONIC WARF[employer] TECHNICIAN PUBLIC ADDRESS ANNOUNCER
--- NOTE | 2021-11-12 15:32 | NURSING ---
Patient bladder scanned with results of 150 showing. Patient states that he has not been drinking much today. Patient has not voided yet this shift.
[2021-11-12] MEDS: Tamsulosin HCl 0.4 MG Capsule PO (17:55)
[2021-11-12] MEDS: Temazepam 15 MG Capsule PO (21:47)
[2021-11-13] MEDS: APIXABAN 2.5 MG TABLET PO ×2 (05:43→17:42)
[2021-11-13] MEDS: Senna/Docusate Sodium 1 Tablet 2 TABLET PO ×2 (05:43→17:42)
[2021-11-13] MEDS: amLODIPine 5 MG Tablet PO (05:43)
[2021-11-13] MEDS: Ascorbic Acid 500 MG Tablet PO (05:43)
[2021-11-13] MEDS: Multivitamins,Therapeutic Tablet 1 TABLET PO (08:16)
[2021-11-13] MEDS: Bisacodyl 5 MG Tablet 10 MG PO (13:29)
[2021-11-13 15:58] VITALS: BP 121/83; PULSE 78; RESP 18; TEMP 36.6; O2SAT 95
[2021-11-13] MEDS: Tamsulosin HCl 0.4 MG Capsule PO (17:42)
[2021-11-14] MEDS: Senna/Docusate Sodium 1 Tablet 2 TABLET PO ×2 (05:24→16:57)
[2021-11-14] MEDS: amLODIPine 5 MG Tablet PO (05:24)
[2021-11-14] MEDS: APIXABAN 2.5 MG TABLET PO ×2 (05:24→16:57)
[2021-11-14] MEDS: Ascorbic Acid 500 MG Tablet PO (05:24)
[2021-11-14 05:27] VITALS: BP 110/72; PULSE 87
[2021-11-14] MEDS: Multivitamins,Therapeutic Tablet 1 TABLET PO (08:46)
--- NOTE | 2021-11-14 13:55 | NURSING ---
No bm since 11/07 pt took prn dulcolax yesterday but is refusing further interventions stating he doesn't believe he is constipated at this time. Dr. Sorenson updated and N.O. for DOANVAN
--- NOTE | 2021-11-14 14:00 | NURSING ---
Resident aware of another resident on floor testing positive for covid. Message left for emergency contact to update but no answer
--- NOTE | 2021-11-14 15:05 | RAD_ITS ---
STUDY: X-RAY - ABDOMEN/PELVIS REASON FOR EXAM: Male, 76 years old. Constipation. TECHNIQUE: Two AP supine views of the abdomen and pelvis. COMPARISON: CT of the abdomen and pelvis, 10/13/2019. FINDINGS: Normal visualized lung bases. There is a nonspecific bowel gas pattern. Air is seen throughout the colon. There is air in nondilated scattered small bowel loops. Normal rectal air. There is no demonstrated free abdominal air. The visualized liver, spleen and kidneys are grossly normal in size and morphology. Normal soft tissue structures. There are diffuse degenerative changes of the visualized lumbar spine. RAD/Abdomen Single View IMPRESSION: Nonspecific bowel gas pattern without evidence of acute intra-abdominal process. Electronically Signed: Zbigniew Avery DO at 17:05 EDT ,
[2021-11-14 15:57] VITALS: BP 121/68; PULSE 68; RESP 18; TEMP 36.6; O2SAT 96
--- NOTE | 2021-11-14 16:17 | CASEMGMT ---
Social Work Pt updated that insurance has approved continued stay with next review date of 11/21. SW encouraged pt to continue to work with therapy to progress as much as possible as continued stay is not guaranteed at next review. Pt expresses understanding. Tiago COE
[2021-11-14] MEDS: Tamsulosin HCl 0.4 MG Capsule PO (16:57)
[2021-11-14] MEDS: Acetaminophen 500 MG Tablet 1000 MG PO (20:21)
[2021-11-14] MEDS: traMADol 50 MG Tablet PO (20:22)
[2021-11-14] MEDS: Temazepam 15 MG Capsule PO (20:22)
--- NOTE | 2021-11-14 20:30 | NURSING ---
Pt w/ rash to the left buttock. Denies itch to affected area. Large, intact, pink area noted to rt hip. Instructed pt on the important of position changes to prevent further skin breakdown.
[2021-11-15] MEDS: Senna/Docusate Sodium 1 Tablet 2 TABLET PO ×2 (05:31→17:44)
[2021-11-15] MEDS: Ascorbic Acid 500 MG Tablet PO (05:31)
[2021-11-15] MEDS: amLODIPine 5 MG Tablet PO (05:31)
[2021-11-15] MEDS: APIXABAN 2.5 MG TABLET PO ×2 (05:31→17:43)
[2021-11-15 05:37] VITALS: BP 131/71; PULSE 63
[2021-11-15] MEDS: Multivitamins,Therapeutic Tablet 1 TABLET PO (09:07)
--- NOTE | 2021-11-15 13:50 | MDS.RN ---
Pain interview for KELLEY 11/18/21 completed.
[2021-11-15 14:02] VITALS: BP 130/61; PULSE 68; RESP 16; TEMP 36.2; O2SAT 96
--- NOTE | 2021-11-15 14:17 | CASEMGMT ---
BIMS and PHQ9 interviews completed on this date for MDS assessment. SARAVANAN Piña
[2021-11-15] MEDS: Tamsulosin HCl 0.4 MG Capsule PO (17:43)
[2021-11-15] MEDS: Temazepam 15 MG Capsule PO (20:43)
[2021-11-16] MEDS: traMADol 50 MG Tablet PO (03:23)
[2021-11-16] MEDS: Acetaminophen 500 MG Tablet 1000 MG PO (03:24)
[2021-11-16] MEDS: APIXABAN 2.5 MG TABLET PO ×2 (05:06→17:11)
[2021-11-16] MEDS: Ascorbic Acid 500 MG Tablet PO (05:06)
[2021-11-16] MEDS: amLODIPine 5 MG Tablet PO (05:06)
[2021-11-16] MEDS: Senna/Docusate Sodium 1 Tablet 2 TABLET PO ×2 (05:07→17:12)
[2021-11-16] MEDS: Multivitamins,Therapeutic Tablet 1 TABLET PO (08:11)
--- NOTE | 2021-11-16 11:37 | NURSING ---
pt has rash to LT buttock, chronic off & on per pt report. denies itching. dr hardy updated, new order received. also pt c/o hip and pelvis pain with movement since fall at home. new order for medrol dose karley.
[2021-11-16] MEDS: MethylPREDNISolone DosePak 4 MG BOX PO ×3 (13:49→20:12)
[2021-11-16 14:51] VITALS: BP 107/61; PULSE 72; RESP 16; TEMP 36.8; O2SAT 95
--- NOTE | 2021-11-16 15:24 | NURSING ---
contact pravin notified of staff member testing +for covid
[2021-11-16] MEDS: Tamsulosin HCl 0.4 MG Capsule PO (17:11)
[2021-11-16] MEDS: Temazepam 15 MG Capsule PO (20:12)
[2021-11-17] MEDS: Senna/Docusate Sodium 1 Tablet 2 TABLET PO (05:30)
[2021-11-17] MEDS: amLODIPine 5 MG Tablet PO (05:30)
[2021-11-17] MEDS: APIXABAN 2.5 MG TABLET PO ×2 (05:31→17:32)
[2021-11-17 05:39] VITALS: BP 129/71; PULSE 67
[2021-11-17] MEDS: Ascorbic Acid 500 MG Tablet PO (06:50)
[2021-11-17] MEDS: MethylPREDNISolone DosePak 4 MG BOX PO ×4 (07:54→21:15)
[2021-11-17] MEDS: Multivitamins,Therapeutic Tablet 1 TABLET PO (07:54)
[2021-11-17 16:00] VITALS: BP 134/71; PULSE 85; RESP 20; TEMP 36.3; O2SAT 97
[2021-11-17] MEDS: Tamsulosin HCl 0.4 MG Capsule PO (17:32)
[2021-11-17] MEDS: traMADol 50 MG Tablet PO (17:34)
[2021-11-17] MEDS: Acetaminophen 500 MG Tablet 1000 MG PO (21:14)
[2021-11-17] MEDS: Temazepam 15 MG Capsule PO (21:15)
[2021-11-18] MEDS: APIXABAN 2.5 MG TABLET PO ×2 (05:40→17:28)
[2021-11-18] MEDS: Ascorbic Acid 500 MG Tablet PO (05:41)
[2021-11-18] MEDS: amLODIPine 5 MG Tablet PO (05:41)
[2021-11-18] MEDS: Senna/Docusate Sodium 1 Tablet 2 TABLET PO ×2 (05:41→17:28)
[2021-11-18] MEDS: Multivitamins,Therapeutic Tablet 1 TABLET PO (08:41)
[2021-11-18] MEDS: MethylPREDNISolone DosePak 4 MG BOX PO ×4 (08:41→20:34)
[2021-11-18] MEDS: oxyCODONE 5 MG Tablet PO (08:45)
[2021-11-18] MEDS: Acetaminophen 500 MG Tablet 1000 MG PO (08:45)
[2021-11-18 15:04] VITALS: BP 119/55; PULSE 67; RESP 15; TEMP 36.2; O2SAT 97
[2021-11-18] MEDS: Tamsulosin HCl 0.4 MG Capsule PO (17:28)
[2021-11-18 20:36] VITALS: PULSE 74; RESP 16; O2SAT 94
[2021-11-18] MEDS: Temazepam 15 MG Capsule PO (20:38)
[2021-11-19] MEDS: Ascorbic Acid 500 MG Tablet PO (05:58)
[2021-11-19] MEDS: amLODIPine 5 MG Tablet PO (05:58)
[2021-11-19] MEDS: APIXABAN 2.5 MG TABLET PO ×2 (05:58→18:04)
[2021-11-19] MEDS: Senna/Docusate Sodium 1 Tablet 2 TABLET PO (05:58)
[2021-11-19] MEDS: oxyCODONE 5 MG Tablet PO (06:00)
[2021-11-19 06:01] LABS: Absolute Lymphocyte Count 0.75 X10^3/uL (0.83-4.51); Absolute Neutrophil Count 9.6 X10^3/uL (2.0-7.7); Basophil# 0.01 X10^3/uL; Basophil% 0.1 % (0-1); Hematocrit 38.5 % (40-54); Hemoglobin 12.7 g/dL (13.0-16.5); Lymphocyte # 0.75 X10^3/ul (0.83-4.51); Lymphocyte % 6.7 % (19-41); Mean Platelet Vol. 10.2 fl (6.2-12.0); Monocyte# 0.74 X10^3/uL; Monocyte% 6.7 % (0-10); NRBC Flagged by Analyzer 0 % (0-5); Neutrophil # 9.57 X10^3/uL (2.7-7.7); Neutrophil % 86.1 % (47-70); Platelet Count 281 K/mm3 (150-450); RBC Distribution Width CV 13.2 % (11.6-14.6); RBC Distribution Width SD 47.2 fl (35.1-43.9); Red Blood Count 3.97 M/mm3 (4.6-6.2); White Blood Count 11.1 K/mm3 (4.4-11.0)
[2021-11-19 06:02] VITALS: BP 148/81; PULSE 69
[2021-11-19 06:42] LABS: Anion Gap 5 (5-15); BUN 32 mg/dL (7-18); BUN/Creat Ratio 29.1 RATIO (10-20); Calcium,Total 8.8 mg/dL (8.5-10.1); Chloride 108 mmol/L (98-107); EST Glomerular Filtration Rate 69 mL/min (>60); Est Glom Filt Rate - Afr Amer 83 mL/min (>60); Estimated Creatinine Clearance 58.59 ml/min; Glucose 106 mg/dL (74-106); Potassium 4.2 mmol/L (3.5-5.1); Sodium Level 139 mmol/L (136-145)
[2021-11-19] MEDS: MethylPREDNISolone DosePak 4 MG BOX PO ×2 (08:54→11:13)
[2021-11-19] MEDS: Multivitamins,Therapeutic Tablet 1 TABLET PO (08:54)
--- NOTE | 2021-11-19 09:31 | NURSING ---
Repairer Art Objects Note: Interview and Section F of MDS complete.
[2021-11-19] MEDS: COVID-19 VACC, MRNA(PFIZER)/PF 30 MCG/0.3 ML SYRINGE IM (11:07)
[2021-11-19] MEDS: Tuberculin,Purif.prot.deriv. 50 TU/ML Vial 0.1 ML ID (11:12)
[2021-11-19 13:46] VITALS: BP 128/68; PULSE 72; RESP 16; TEMP 36; O2SAT 98
[2021-11-19] MEDS: Tamsulosin HCl 0.4 MG Capsule PO (18:04)
--- NOTE | 2021-11-19 19:01 | NURSING ---
During report previous nurse passed on that patient has had abdominal pain and nausea since after breakfast. Patient refused to eat lunch or dinner. Dr. Sorenson was paged and updated by previous nurse.
--- NOTE | 2021-11-19 19:04 | NURSING ---
Dr. Sorenson notified of patient c/o abdominal pain. New order fro CBC, BMP, KUB, UA C&S, Zofrand ODT 8mg q8h, and Tums [id number].
--- NOTE | 2021-11-19 19:23 | RAD_ITS ---
EXAM: XR ABDOMEN, 1 VIEW CLINICAL INDICATION: Nausea, ABD pain TECHNIQUE: Frontal supine view of the abdomen/pelvis. This report was created using ipadio report generation technology. COMPARISON: None. FINDINGS: LOWER THORAX: No acute pathology. GASTROINTESTINAL TRACT: Air-filled small bowel loops may suggest an ileus. Obstruction is not excluded. CT abdomen and pelvis can better evaluate. ORGANS: Unremarkable as visualized. No organomegaly. No abnormal calcifications. BONES/JOINTS: Degenerative findings in lumbar spine. SOFT TISSUES: No acute pathology. RAD/Abdomen Single View IMPRESSION: Air-filled small bowel loops may suggest an ileus. Obstruction is not excluded. CT abdomen and pelvis can better evaluate. Electronically Signed: Guanakito Rebolledo MD at 19:42 EDT ,
--- NOTE | 2021-11-19 19:38 | NURSING ---
Lab notified that patient is back on unit at this time.
--- NOTE | 2021-11-19 20:04 | NURSING ---
Dr. Sorenson called and ordered patient to go to ER.
--- NOTE | 2021-11-19 20:09 | NURSING ---
Report called to Edwar QUESADA in ED. Instructed to take patient into Room #6.
[2021-11-19 20:31] LABS: Absolute Lymphocyte Count 0.91 X10^3/uL (0.83-4.51); Absolute Neutrophil Count 11.6 X10^3/uL (2.0-7.7); Basophil# 0.02 X10^3/uL; Basophil% 0.1 % (0-1); Hematocrit 41.4 % (40-54); Hemoglobin 13.8 g/dL (13.0-16.5); Lymphocyte # 0.91 X10^3/ul (0.83-4.51); Lymphocyte % 6.6 % (19-41); Mean Corp Hgb Conc 33.3 g/dL (32-36); Mean Corpuscular Volume 96.1 fL (80-94); Mean Platelet Vol. 10.2 fl (6.2-12.0); Monocyte# 1.29 X10^3/uL; Monocyte% 9.3 % (0-10); NRBC Flagged by Analyzer 0 % (0-5); Neutrophil # 11.57 X10^3/uL (2.7-7.7); Neutrophil % 83.6 % (47-70); Platelet Count 309 K/mm3 (150-450); RBC Distribution Width SD 46.2 fl (35.1-43.9); Red Blood Count 4.31 M/mm3 (4.6-6.2); White Blood Count 13.8 K/mm3 (4.4-11.0)
--- NOTE | 2021-11-19 20:40 | NURSING ---
20:15 patient called out that he had thrown up. This Nurse went into room. 300mL of clear yellowish emesis in bag. Explained to patient Dr. Sorenson request for him to be transferred down to the ED. Patient agreeable. Patient transferred via bed x2 assist. Transferred patient into room #6. Report given at bedside to Soledad QUESADA.
--- NOTE | 2021-11-19 20:44 | NURSING ---
TONI (friend) updated the patient was transferred to ED.
[2021-11-19 20:53] LABS: Anion Gap 7 (5-15); BUN 27 mg/dL (7-18); BUN/Creat Ratio 24.3 RATIO (10-20); Chloride 104 mmol/L (98-107); Creatinine, Serum 1.11 mg/dL (0.70-1.30); EST Glomerular Filtration Rate 68 mL/min (>60); Est Glom Filt Rate - Afr Amer 82 mL/min (>60); Estimated Creatinine Clearance 58.06 ml/min; Glucose 121 mg/dL (74-106); Potassium 3.9 mmol/L (3.5-5.1); Sodium Level 137 mmol/L (136-145)
--- NOTE | 2021-11-19 23:47 | NURSING ---
Per Soledad RN in ED, patient will be transferred out to another facility.
--- NOTE | 2021-11-20 01:36 | NURSING ---
Becky RN from ED called and stated patient will be returning to the floor. [facility] refused patient. According to ER doctor, patient is stable to come back to TCU. Dr. Villagran is off for 3 weeks and no urologist is available at this time.
--- NOTE | 2021-11-20 01:40 | NURSING ---
Patient returned to Unit via cart at this time. Transferred into bed x2 assist.
[2021-11-20 01:44] VITALS: BP 132/96; PULSE 64; RESP 16; O2SAT 97
--- NOTE | 2021-11-20 05:14 | NURSING ---
Addendum entered by Sol Headley 11/20/21 06:30: Patient resting comfortably in bed with eyes closed at this time. No signs of distress noted. Original Note: Patient refusing all AM medications at this time. Will have oncoming nurse reattempt.
[2021-11-20] MEDS: MethylPREDNISolone DosePak 4 MG BOX PO ×2 (08:13→21:04)
[2021-11-20] MEDS: amLODIPine 5 MG Tablet PO (08:14)
[2021-11-20] MEDS: APIXABAN 2.5 MG TABLET PO ×2 (08:14→18:11)
--- NOTE | 2021-11-20 09:06 | CASEMGMT ---
Addendum entered by Augustina Marrero 11/20/21 09:54: SW did provide pt with transportation resources in the community, per pt's request during admission assessment. Original Note: Social Work IDT met with patient for care plan meeting. Discussed patient's progress in PT/OT/SN. Pt is reluctant to participate in activities and therapy. However, pt just had an ED visit and nursing concerned about pt being discharged prematurely. Pt lives at home alone. Pt is currently needing x1-2 assist for transfers and ADLs. Pt is TTWB and pain can be limiting. Therapy offered slideboard transfer and pt hesitant. Inquired to pt about DC plan as pt has no support in the community. Broached topic of SNF stay and financial liability. Pt stated he does not want to spend the money on a SNF and when he applied for Medicaid prior, he was told he has too many assets. Offered to reapply but if he has assets, those would need to be liquidated to pay for SNF. Pt refused. SW encouraged to process options and provided list of SNFs that provides include quality and resource data that is consistent with the pt's preferred geographic region, medical needs and insurance networks. Pt agreed to review. SW to continue to follow. Augustina Marrero, CHEMIST INSTRUMENTATION SPRAGGER
[2021-11-20 10:00] VITALS: BP 130/74; PULSE 74; RESP 18; TEMP 37.1; O2SAT 94
--- NOTE | 2021-11-20 10:23 | NURSING ---
Rosa was updated on need for consult and stated he will see pt and will call back with date and time
[2021-11-20 13:26] VITALS: BP 145/69; PULSE 77; RESP 18; TEMP 36.1; O2SAT 97
--- NOTE | 2021-11-20 15:24 | PCM.CONS.U ---
Assessment & Plan Assessment/Plan (1) Kidney stone on right side: PLAN: Plan for cystoscopy and right stent placement tomorrow n.p.o. at midnight (2) Hydronephrosis of right kidney: HPI Consult Data Date of Consult: 11/20/21 HPI Narrative Reason for Consultation: Right ureteral calculi HPI Narrative: SUMEET QUIGLEY, is a 76 M who currently is in the transitional care unit and he has a right ureteral calculi. We will put him on the schedule for tomorrow for cystoscopy and right stent placement to alleviate the blockage and then want to set him up for surgery at a later date once the blockages cleared out the stent will least alleviate the pain and blockage. [facility] Medical History Closed right hip fracture Hypertension Insomnia Lung cancer Paraneoplastic cerebellar ataxia Pelvis fracture, right Home Medications ascorbic acid (vitamin C) 500 mg tablet 500 mg PO DAILY Supplement 12/07/14 [History Last Taken Unknown] multivitamin with folic acid 400 mcg tablet 1 tab PO DAILY Supplement 12/07/14 [History Last Taken Unknown] amlodipine 5 mg tablet 1 tab PO DAILY BP 11/10/21 [History Last Taken Unknown] temazepam 15 mg capsule (Restoril) 15 mg PO QHS 11/10/21 [History Last Taken Unknown] apixaban 2.5 mg tablet 2.5 mg PO BID Anti Coagulant 11/11/21 [History Last Taken Unknown] oxycodone 5 mg tablet 5 mg PO Q6H PRN Pain 11/11/21 [History Last Taken Unknown] methylprednisolone 4 mg tablets in a dose pack (Medrol ([place])) 4 mg PO BID 11/20/21 [History Last Taken Unknown] sennosides 8.6 mg-docusate sodium 50 mg tablet (Senna with Docusate Sodium) 2 tab-cap PO DAILY 11/20/21 [History Last Taken Unknown] tamsulosin 0.4 mg capsule (Flomax) 0.4 mg PO 1730 11/20/21 [History Last Taken Unknown] Allergy/AdvReac Type Severity Reaction Status Date / Time No Known Allergies Allergy Verified 11/19/21 20:28 Family History Father Myocardial infarction Brother Shanice Gehrig disease Surgical History no surgical history Social History household members: none Smoking Status: Current every day smoker tobacco type: cigarettes alcohol intake: current alcohol intake frequency: holidays/special occasions only Alcohol type: beer substance use type: does not use what type of physical activity do you participate in: none ROS Constitutional Constitutional: Denies chills, fever(s) or malaise Eyes Eyes: Denies blurry vision or change in vision ENT HEENT: Reports none Cardiovascular Cardiovascular: Denies chest pain or palpitations Respiratory/Chest Respiratory/Chest: Denies cough or shortness of breath with exertion Gastrointestinal Gastrointestinal: Denies abdominal pain, constipation or diarrhea Musculoskeletal Musculoskeletal: Denies back pain, joint stiffness or joint swelling Integumentary Integumentary: Denies dry skin, jaundice, lesions or rash Neurologic Neurologic: Denies confusion, syncope or weakness Psychiatric Psychiatric: Reports none; Denies anxiety or depression Endocrine Endocrinology: Denies excessive sweating, fatigue or flushing Hematologic/Lymphatic Hematologic/Lymphatic: Denies anemia, easy bleeding or easy bruising Physical Exam Const alert and oriented x3 General Appearance: cooperative HEENT normocephalic, head/scalp atraumatic, EAC's normal and TM's normal bilaterally Eyes PERRL and EOMs intact bilaterally Pupil: sluggish Neck no lymphadenopathy, supple and no JVD General: trachea midline Lymph Lymphatic: no lymphadenopathy noted, lymphedema and lymphadenopathy Resp normal respiratory effort, normal air movement and clear to auscultation bilaterally Cardio regular rate, regular rhythm and peripheral pulses 2+ throughout GI soft to palpation, non-tender and non-distended Extremity normal capillary refill and no clubbing, cyanosis or edema General Extremity: no tenderness to palpation of joints or extremities Skin no rashes or lesions noted General Skin Exam: turgor normal Lesions: no lesions Rashes: no rashes Neuro CN's II-XII intact bilaterally Speech: speech normal Motor Exam: strength 5/5 throughout; Negative for general weakness Psych thought process normal, cooperative and affect normal Appearance: appropriate Lab / Micro Data Result Diagrams: 11/19/21 20:11 11/19/21 20:11 Labs: Laboratory Results - last 24 hr 11/19/21 20:11: WBC 13.8 H, RBC 4.31 L, Hgb 13.8, Hct 41.4, MCV 96.1 H, MCH 32.0, MCHC 33.3, RDW Std Deviation 46.2 H, RDW Coeff of Roberto 13.0, Plt Count 309, MPV 10.2, Immature Gran % (Auto) 0.400, Neut % (Auto) 83.6 H, Lymph % (Auto) 6.6 L, [place] % (Auto) 9.3, Eos % (Auto) 0.0, Baso % (Auto) 0.1, Absolute Neuts (auto) 11.6 H, Absolute Lymphs (auto) 0.91, Nucleated RBC % 0 11/19/21 20:11: Sodium 137, Potassium 3.9, Chloride 104, Carbon Dioxide 26.0, Anion Gap 7, BUN 27 H, Creatinine 1.11, Estim Creat Clear Calc 58.06, Est GFR (MDRD) Af Amer 82, Est GFR (MDRD) Non-Af 68, BUN/Creatinine Ratio 24.3 H, Glucose 121 H, Calcium 9.0 Radiology Impression KUB X-Ray 11/19/21 19:23 IMPRESSION: Air-filled small bowel loops may suggest an ileus. Obstruction is not excluded. CT abdomen and pelvis can better evaluate. Electronically Signed: Guanakito Rebolledo MD at 19:42 EDT ,
--- NOTE | 2021-11-20 16:57 | NURSING ---
Pt has decreased po intake dietary requesting Appetite stimulant Dr. Sorenson updated N.O. for 7.5mg of Remeron QHS. Order read back.
[2021-11-20] MEDS: Tamsulosin HCl 0.4 MG Capsule PO (18:11)
--- NOTE | 2021-11-20 18:41 | PCA ---
Patient did not wish to get washed tonight. CHARGE COORDINATOR offered to help patient but they stated I washed earlier in the morning and do not need anything else at this time
[2021-11-20 20:50] VITALS: PULSE 74; RESP 18
[2021-11-20] MEDS: Mirtazapine 15 MG Tablet 7.5 MG PO (21:05)
[2021-11-20] MEDS: Temazepam 15 MG Capsule PO (21:05)
[2021-11-21 10:00] VITALS: PULSE 74; RESP 16; O2SAT 94
[2021-11-21 10:14] VITALS: BP 134/78; PULSE 86; RESP 16; TEMP 36.8; O2SAT 94
--- NOTE | 2021-11-21 10:14 | NURSING ---
Surgery here to take patient to OR.
--- NOTE | 2021-11-21 12:19 | OP.PCM_ITS ---
Report of Operation Date of Procedure: 11/21/21 Pre-Operative Diagnosis: right ureteral calculi Post-Operative Diagnosis: same Surgery/Procedure Performed:: cystoscopy and right stent placement and retrograde pyelogram Description of Surgical Findings:: Patient was taken back to the operating room after induction of general anesthesia, the patient was placed in dorsolithotomy position. The urethra and genitals were prepped and draped in usual sterile fashion. Using a 21 Emirati rigid cystourethroscope the entire length of the urethra was normal then went into the bladder. Identified the trigone the left and right ureteral orifice. I then cannulated the right orifice and advanced a wire up into the kidney. I then backloaded a 5 Emirati open ended catheter over the wire and injected contrast to delineate the anatomy. After the retrograde was performed I then used fluoroscopic images and guidance to advanced a wire up into the kidney and over the 0.038 glidewire I advanced a 6 Emirati by 26 cm double pigtail stent. I then pulled the 0.038 Glidewire off and the stent coiled in the kidney bladder good position. The bladder was then drained. We confirmed the position of the stent by fluoroscopy. Patient anesthetic was reversed and was taken back to the PACU in good condition. Type of Anesthesia: General Drains: stent Admit VTE Documentation VTE Present on Admission: No VTE Mechan Device Prophylaxis: SCD's VTE Pharm Prophylaxis ordered?: No
--- NOTE | 2021-11-21 13:58 | NURSING ---
Addendum entered by Camille Hills 11/21/21 14:04: Clair called back and let this know that Dr. Renee removed Kate cath and did not replace. Will add bladder scan q8hr. Original Note: Clair from called to give report. Dr. Renee placed Stent and pt is ready to return to TCU. Vitals are stable and no c/o of pain at this time. Pt refused anything to drink or eat. Dr. Renee's office will call at a later date to set up surgery date.
--- NOTE | 2021-11-21 14:11 | NURSING ---
Patient returned to floor. Alert and oriented x3. Pleasant and cooperative with all care.
[2021-11-21] MEDS: APIXABAN 2.5 MG TABLET PO (17:21)
[2021-11-21] MEDS: Tamsulosin HCl 0.4 MG Capsule PO (17:21)
[2021-11-21] MEDS: Mirtazapine 15 MG Tablet 7.5 MG PO (21:57)
[2021-11-21] MEDS: Temazepam 15 MG Capsule PO (21:57)
[2021-11-22] MEDS: APIXABAN 2.5 MG TABLET PO ×2 (07:27→17:12)
[2021-11-22] MEDS: amLODIPine 5 MG Tablet PO (07:27)
[2021-11-22] MEDS: Ascorbic Acid 500 MG Tablet PO (07:27)
[2021-11-22] MEDS: Multivitamins,Therapeutic Tablet 1 TABLET PO (08:23)
[2021-11-22 08:26] VITALS: PULSE 55; RESP 16; O2SAT 99
--- NOTE | 2021-11-22 08:38 | NURSING ---
Per Dr. Sorenson administer oral Dulcolax for no bowel movement since 11/17. Patient refused medication.
--- NOTE | 2021-11-22 09:39 | NURSING ---
20 gauge IV removed from left forearm. Catheter intact.
--- NOTE | 2021-11-22 10:11 | NURSING ---
Patient requesting to have follow up with [facility] Adorno instead of going to Dr. Hills in [place]. Message left for Dr. Sorenson.
[2021-11-22] MEDS: traMADol 50 MG Tablet PO (12:51)
--- NOTE | 2021-11-22 13:40 | NURSING ---
Carey consulted per MD order, office called & stated that Dr Patino does not treat this time of fracture. Pt needs to f/u with trauma specialist in [place].
[2021-11-22 16:00] VITALS: BP 109/59; PULSE 80; RESP 16; TEMP 36.8; O2SAT 95
[2021-11-22] MEDS: Senna/Docusate Sodium 1 Tablet 2 TABLET PO (17:12)
[2021-11-22] MEDS: Tamsulosin HCl 0.4 MG Capsule PO (17:12)
[2021-11-22] MEDS: Mirtazapine 15 MG Tablet 7.5 MG PO (20:03)
[2021-11-22] MEDS: Temazepam 15 MG Capsule PO (20:08)
[2021-11-23] MEDS: Senna/Docusate Sodium 1 Tablet 2 TABLET PO ×2 (06:14→16:57)
[2021-11-23] MEDS: amLODIPine 5 MG Tablet PO (06:14)
[2021-11-23] MEDS: Ascorbic Acid 500 MG Tablet PO (06:15)
[2021-11-23] MEDS: APIXABAN 2.5 MG TABLET PO ×2 (06:15→16:56)
[2021-11-23] MEDS: Multivitamins,Therapeutic Tablet 1 TABLET PO (08:01)
[2021-11-23] MEDS: Bisacodyl 5 MG Tablet 10 MG PO (13:48)
[2021-11-23 14:58] VITALS: BP 107/69; PULSE 76; RESP 16; TEMP 36.3; O2SAT 95
[2021-11-23] MEDS: Tamsulosin HCl 0.4 MG Capsule PO (16:56)
--- NOTE | 2021-11-23 16:59 | NURSING ---
Addendum entered by Zully Bernardo 11/24/21 08:00: Dr. Sorenson updated and N.O. to hold eliquis x3 days Original Note: Pt urine tea colored this shift, pt states it has been that color since the stents were placed
[2021-11-23] MEDS: Mirtazapine 15 MG Tablet 7.5 MG PO (21:08)
[2021-11-23] MEDS: Temazepam 15 MG Capsule PO (21:09)
[2021-11-24] MEDS: amLODIPine 5 MG Tablet PO (05:28)
[2021-11-24] MEDS: Senna/Docusate Sodium 1 Tablet 2 TABLET PO ×2 (05:28→17:11)
[2021-11-24] MEDS: Ascorbic Acid 500 MG Tablet PO (05:28)
[2021-11-24] MEDS: APIXABAN 2.5 MG TABLET PO (05:29)
[2021-11-24] MEDS: Multivitamins,Therapeutic Tablet 1 TABLET PO (07:31)
--- NOTE | 2021-11-24 12:19 | MDS.RN ---
Information for the mds was obtained from review of the clinical record, interview of resident, staff, and direct observation of resident's care.
[2021-11-24 15:35] VITALS: BP 109/63; PULSE 74; RESP 18; TEMP 36.3; O2SAT 98
[2021-11-24] MEDS: Tamsulosin HCl 0.4 MG Capsule PO (17:11)
[2021-11-24 20:16] VITALS: PULSE 72; RESP 16; O2SAT 96
[2021-11-24] MEDS: Temazepam 15 MG Capsule PO (20:30)
[2021-11-24] MEDS: Hydrocortisone 2.5% Crm 1 APPLIC TOPICAL (20:30)
[2021-11-24] MEDS: Mirtazapine 15 MG Tablet 7.5 MG PO (20:30)
[2021-11-25] MEDS: amLODIPine 5 MG Tablet PO (06:11)
[2021-11-25] MEDS: Senna/Docusate Sodium 1 Tablet 2 TABLET PO ×2 (06:12→17:01)
[2021-11-25] MEDS: Ascorbic Acid 500 MG Tablet PO (06:12)
[2021-11-25] MEDS: Multivitamins,Therapeutic Tablet 1 TABLET PO (07:54)
--- NOTE | 2021-11-25 09:26 | NURSING ---
Spoke with Grant at [facility]. pt is to be picked up via [facility] at 8am on Thursday11/26/21 for his appt at 9:20
[2021-11-25 09:50] VITALS: PULSE 73; RESP 18; O2SAT 97
[2021-11-25 13:06] VITALS: BP 116/58; PULSE 78; RESP 18; TEMP 36.4; O2SAT 96
[2021-11-25] MEDS: Tamsulosin HCl 0.4 MG Capsule PO (17:01)
[2021-11-25] MEDS: Temazepam 15 MG Capsule PO (21:04)
[2021-11-25] MEDS: Mirtazapine 15 MG Tablet 7.5 MG PO (21:05)
[2021-11-26] MEDS: amLODIPine 5 MG Tablet PO (05:11)
[2021-11-26] MEDS: Ascorbic Acid 500 MG Tablet PO (05:11)
[2021-11-26 05:42] LABS: Absolute Lymphocyte Count 0.98 X10^3/uL (0.83-4.51); Absolute Neutrophil Count 6.9 X10^3/uL (2.0-7.7); Basophil# 0.08 X10^3/uL; Basophil% 0.8 % (0-1); Eosinophil# 0.55 X10^3/uL; Eosinophils% 5.7 % (0-5); Hematocrit 38.4 % (40-54); Hemoglobin 12.7 g/dL (13.0-16.5); Lymphocyte # 0.98 X10^3/ul (0.83-4.51); Lymphocyte % 10.2 % (19-41); Mean Corp Hgb Conc 33.1 g/dL (32-36); Mean Corpuscular Hgb 32.1 pg (27.0-32.0); Mean Platelet Vol. 9.9 fl (6.2-12.0); Monocyte# 1.06 X10^3/uL; Monocyte% 11.1 % (0-10); NRBC Flagged by Analyzer 0 % (0-5); Neutrophil # 6.87 X10^3/uL (2.7-7.7); Neutrophil % 71.9 % (47-70); Platelet Count 267 K/mm3 (150-450); RBC Distribution Width CV 13.1 % (11.6-14.6); RBC Distribution Width SD 46.5 fl (35.1-43.9); Red Blood Count 3.96 M/mm3 (4.6-6.2); White Blood Count 9.6 K/mm3 (4.4-11.0)
[2021-11-26 06:04] LABS: Anion Gap 6 (5-15); BUN 20 mg/dL (7-18); BUN/Creat Ratio 22.6 RATIO (10-20); Calcium,Total 8.4 mg/dL (8.5-10.1); Chloride 109 mmol/L (98-107); Creatinine, Serum 0.89 mg/dL (0.70-1.30); EST Glomerular Filtration Rate 88 mL/min (>60); Est Glom Filt Rate - Afr Amer 107 mL/min (>60); Estimated Creatinine Clearance 72.41 ml/min; Glucose 91 mg/dL (74-106); Potassium 4.1 mmol/L (3.5-5.1); Sodium Level 142 mmol/L (136-145)
[2021-11-26] MEDS: Multivitamins,Therapeutic Tablet 1 TABLET PO (07:36)
--- NOTE | 2021-11-26 08:42 | NURSING ---
[facility] PICKED UP PT AT 0845 TO TAKE PT TO DOCTOR APPOINTMENT BY WHEEL CHAIR WITH .
--- NOTE | 2021-11-26 12:42 | NURSING ---
PT RETURNED FROM APPOINTMENT AT 1230PM. SEE NEW ORDERS.
--- NOTE | 2021-11-26 12:42 | NURSING ---
pt returned from DR osei. Per Dr Hills, pt is to have physical therapy: WBAT RLE, hip and knee ROM as tolerated. Also pt to have xray of pelvis min 3 views in 6 weeks. Per order 's office to call after xrays, pt does not need to be seen in office.
--- NOTE | 2021-11-26 12:47 | NURSING ---
Addendum entered by Robert Kovacs 11/26/21 16:18: stent was already put in. Original Note: OFFICE CALLED AND STATED THAT WOULD LIKE TO GET PT SCHEDULED TO HAVE THE STONE TAKEN OUT AND POSSIBILITY PUTTING A STENT IN AND THE OFFICE WILL CALL BACK TO SCHEDULE IT. RN AWARE
[2021-11-26 14:02] VITALS: BP 113/63; PULSE 75; RESP 16; TEMP 36.5; O2SAT 97
[2021-11-26] MEDS: Tamsulosin HCl 0.4 MG Capsule PO (16:43)
[2021-11-26] MEDS: Senna/Docusate Sodium 1 Tablet 2 TABLET PO (16:43)
--- NOTE | 2021-11-26 16:58 | NURSING ---
FINGER NAILS TRIMMED PER REQUEST OF PT. PT THANKFUL.
[2021-11-26] MEDS: Mirtazapine 15 MG Tablet 7.5 MG PO (21:08)
[2021-11-26] MEDS: Temazepam 15 MG Capsule PO (21:10)
[2021-11-27] MEDS: Ascorbic Acid 500 MG Tablet PO (05:09)
[2021-11-27] MEDS: amLODIPine 5 MG Tablet PO (05:09)
[2021-11-27] MEDS: Multivitamins,Therapeutic Tablet 1 TABLET PO (07:54)
[2021-11-27 08:20] VITALS: PULSE 68; RESP 14; O2SAT 97
[2021-11-27] MEDS: traMADol 50 MG Tablet PO (10:32)
[2021-11-27] MEDS: Acetaminophen 500 MG Tablet 1000 MG PO (10:33)
[2021-11-27 14:53] VITALS: BP 119/62; PULSE 76; RESP 16; TEMP 36.2; O2SAT 97
--- NOTE | 2021-11-27 16:35 | CASEMGMT ---
Social Work Spoke with pt to follow up on DC plans. Pt agreed if insurance issues DC from update tomorrow, he cannot return home. Pt agreed to pay privately at a SNF short term. Pt requested referrals to all of the [facility]Fs - he does not want to go out of town. Referrals made to [facility], [facility], [facility]. SW to continue to follow. Augustina Marrero, WINDOWS ARCHITECT MANAGER TRANSPORT
[2021-11-27] MEDS: Hydrocortisone 2.5% Crm 1 APPLIC TOPICAL (18:04)
[2021-11-27] MEDS: APIXABAN 2.5 MG TABLET PO (18:04)
[2021-11-27] MEDS: Tamsulosin HCl 0.4 MG Capsule PO (18:05)
[2021-11-27] MEDS: Temazepam 15 MG Capsule PO (21:00)
[2021-11-27] MEDS: Mirtazapine 15 MG Tablet 7.5 MG PO (21:00)
[2021-11-28] MEDS: Senna/Docusate Sodium 1 Tablet 2 TABLET PO ×2 (05:16→17:50)
[2021-11-28] MEDS: APIXABAN 2.5 MG TABLET PO ×2 (05:16→17:50)
[2021-11-28] MEDS: amLODIPine 5 MG Tablet PO (05:16)
[2021-11-28] MEDS: Ascorbic Acid 500 MG Tablet PO (05:16)
[2021-11-28] MEDS: Multivitamins,Therapeutic Tablet 1 TABLET PO (08:07)
[2021-11-28] MEDS: Acetaminophen 500 MG Tablet 1000 MG PO (08:11)
[2021-11-28] MEDS: traMADol 50 MG Tablet PO (08:12)
--- NOTE | 2021-11-28 11:53 | NURSING ---
PER THERAPY,PLEASE GIVE PT PAIN MEDS BEFORE THERAPY. PT DID BETTER WITH THERAPY AFTER HAVING MEDS.
[2021-11-28 15:28] VITALS: BP 99/50; PULSE 79; RESP 16; TEMP 36.4; O2SAT 96
[2021-11-28] MEDS: Tamsulosin HCl 0.4 MG Capsule PO (17:50)
[2021-11-28] MEDS: Bisacodyl 5 MG Tablet 10 MG PO (17:52)
[2021-11-28 17:56] VITALS: BP 124/69; PULSE 80
[2021-11-28 20:06] VITALS: PULSE 59; RESP 16; O2SAT 93
[2021-11-28] MEDS: Hydrocortisone 2.5% Crm 1 APPLIC TOPICAL (20:09)
[2021-11-28] MEDS: Mirtazapine 15 MG Tablet 7.5 MG PO (20:12)
[2021-11-28] MEDS: Temazepam 15 MG Capsule PO (20:13)
--- NOTE | 2021-11-29 04:37 | NURSING ---
Patient's rash appears worse since Thursday night's shift. Rash is now circling around the umbical area and appears to be fungal. Patient denies any itching or pain. Message left for Dr. Sorenson.
[2021-11-29] MEDS: Ascorbic Acid 500 MG Tablet PO (05:45)
[2021-11-29] MEDS: Senna/Docusate Sodium 1 Tablet 2 TABLET PO ×2 (05:45→17:33)
[2021-11-29] MEDS: APIXABAN 2.5 MG TABLET PO ×2 (05:45→17:31)
[2021-11-29] MEDS: amLODIPine 5 MG Tablet PO (05:45)
[2021-11-29 05:50] VITALS: BP 135/68; PULSE 56
[2021-11-29] MEDS: Multivitamins,Therapeutic Tablet 1 TABLET PO (08:34)
--- NOTE | 2021-11-29 12:56 | CASEMGMT ---
Addendum entered by Augustina Marrero 11/29/21 16:18: Patient has chosen [facility] with a private room. Spoke with [facility] and they confirmed pt is accepted. Updated [facility]. Original Note: Social Work All SNFs have accepted pt. Spoke with pt about pricing for each. Pt narrowed it down to [facility], [facility] and [facility]. SW provided brochures for pt to review. Explained insurance NRD 12/02 with [employer] indicating DC 12/05. Pt understands. SW to follow. Augustina Marrero, ZENON APPEALS OFFICER
[2021-11-29 16:00] VITALS: BP 101/60; PULSE 80; RESP 16; TEMP 36.6; O2SAT 94
[2021-11-29] MEDS: Tamsulosin HCl 0.4 MG Capsule PO (17:30)
[2021-11-29] MEDS: Clotrimazole/Betamethasone 1 Tube 1 APPLIC TOPICAL (17:44)
[2021-11-29] MEDS: Mirtazapine 15 MG Tablet 7.5 MG PO (21:01)
[2021-11-29] MEDS: Temazepam 15 MG Capsule PO (21:04)
[2021-11-30 05:35] VITALS: BP 105/56; PULSE 59
[2021-11-30] MEDS: Ascorbic Acid 500 MG Tablet PO (05:35)
[2021-11-30] MEDS: Clotrimazole/Betamethasone 1 Tube 1 APPLIC TOPICAL ×2 (05:35→17:05)
[2021-11-30] MEDS: Senna/Docusate Sodium 1 Tablet 2 TABLET PO ×2 (05:35→17:06)
[2021-11-30] MEDS: APIXABAN 2.5 MG TABLET PO ×2 (05:35→17:04)
[2021-11-30] MEDS: amLODIPine 5 MG Tablet PO (05:35)
[2021-11-30] MEDS: Multivitamins,Therapeutic Tablet 1 TABLET PO (08:03)
[2021-11-30] MEDS: traMADol 50 MG Tablet PO (08:29)
[2021-11-30] MEDS: Acetaminophen 500 MG Tablet 1000 MG PO (08:29)
--- NOTE | 2021-11-30 10:19 | NURSING ---
Patient refused therapy this AM even after administration of pain medication 30 mins prior.
[2021-11-30 14:35] VITALS: BP 114/62; PULSE 70; RESP 16; TEMP 36.4; O2SAT 95
[2021-11-30] MEDS: Tamsulosin HCl 0.4 MG Capsule PO (17:04)
[2021-11-30] MEDS: Temazepam 15 MG Capsule PO (21:19)
[2021-11-30] MEDS: Mirtazapine 15 MG Tablet 7.5 MG PO (21:20)
[2021-12-01] MEDS: Senna/Docusate Sodium 1 Tablet 2 TABLET PO ×2 (05:24→16:52)
[2021-12-01] MEDS: Ascorbic Acid 500 MG Tablet PO (05:24)
[2021-12-01] MEDS: APIXABAN 2.5 MG TABLET PO ×2 (05:24→16:52)
[2021-12-01] MEDS: amLODIPine 5 MG Tablet PO (05:24)
[2021-12-01] MEDS: Clotrimazole/Betamethasone 1 Tube 1 APPLIC TOPICAL ×2 (05:25→16:52)
[2021-12-01] MEDS: Multivitamins,Therapeutic Tablet 1 TABLET PO (08:45)
[2021-12-01 09:53] VITALS: PULSE 64; RESP 14; O2SAT 96
[2021-12-01 14:12] VITALS: BP 116/65; PULSE 79; RESP 14; TEMP 36.3; O2SAT 96
[2021-12-01] MEDS: Tamsulosin HCl 0.4 MG Capsule PO (16:51)
[2021-12-01] MEDS: Temazepam 15 MG Capsule PO (21:08)
[2021-12-01] MEDS: Mirtazapine 15 MG Tablet 7.5 MG PO (21:09)
[2021-12-02] MEDS: Clotrimazole/Betamethasone 1 Tube 1 APPLIC TOPICAL ×2 (05:24→17:29)
[2021-12-02] MEDS: Ascorbic Acid 500 MG Tablet PO (05:24)
[2021-12-02] MEDS: amLODIPine 5 MG Tablet PO (05:24)
[2021-12-02] MEDS: APIXABAN 2.5 MG TABLET PO ×2 (05:24→17:28)
[2021-12-02 05:30] VITALS: BP 108/60; PULSE 64
[2021-12-02] MEDS: oxyCODONE 5 MG Tablet PO ×2 (05:33→10:16)
[2021-12-02] MEDS: Multivitamins,Therapeutic Tablet 1 TABLET PO (07:38)
--- NOTE | 2021-12-02 12:19 | CASEMGMT ---
Social Work This health and social care teacher met with patient in room. This health and social care teacher communicating to patient that continued stay has been denied by insurance with last cover day to be 12/04/2021 and anticipated discharge or financial responsibility to begin on 12/05/2021. Patient voiced understanding. This health and social care teacher provided patient with Notice of Medicare Non-Coverage, patient signed and was educated on right to an appeal. This health and social care teacher further broached conversation of discharge plan. Patient confirms to continue to be agreeable to assisted placement with assisted choice of [facility], private room self-pay. Patient reports current difficulty of getting patient check book to be able to pay for assisted. Patient reports to be working with a friend on getting a sarkar to patient condo so that patient friend is able to get patient checkbook. Patient states to have limited support in the community/home. Patient to inform this health and social care teacher with any difficulty with getting checkbook to assist with further problem solving as needed. Patient denies any current questions. Telephone call to [facility]. [facility] confirms to be holding a bed for patient. This health and social care teacher communicating patient discharge date as mentioned above. [facility] request for clinical information to be sent the day prior to patient admission. Transfer to extended care form initiated. Proposed discharge date: 12/05/2021 PLAN: [facility] under intermediate level of care. Will continue to follow. Lydia YARBROUGH, JUSTINA
[2021-12-02 14:43] VITALS: BP 118/71; PULSE 73; RESP 16; TEMP 36.7; O2SAT 96
[2021-12-02] MEDS: Tamsulosin HCl 0.4 MG Capsule PO (17:28)
[2021-12-02] MEDS: Temazepam 15 MG Capsule PO (20:21)
[2021-12-02] MEDS: Mirtazapine 15 MG Tablet 7.5 MG PO (20:22)
[2021-12-03 05:27] VITALS: BP 95/52; PULSE 60; RESP 18; TEMP 36.6; O2SAT 94
[2021-12-03 05:28] LABS: Absolute Lymphocyte Count 1.14 X10^3/uL (0.83-4.51); Absolute Neutrophil Count 4.2 X10^3/uL (2.0-7.7); Basophil# 0.07 X10^3/uL; Basophil% 1.1 % (0-1); Eosinophils% 6.2 % (0-5); Hematocrit 38.2 % (40-54); Hemoglobin 11.8 g/dL (13.0-16.5); Lymphocyte # 1.14 X10^3/ul (0.83-4.51); Lymphocyte % 17.6 % (19-41); Mean Corp Hgb Conc 30.9 g/dL (32-36); Mean Corpuscular Hgb 31.9 pg (27.0-32.0); Mean Corpuscular Volume 103.2 fL (80-94); Mean Platelet Vol. 9.9 fl (6.2-12.0); Monocyte# 0.63 X10^3/uL; Monocyte% 9.7 % (0-10); NRBC Flagged by Analyzer 0 % (0-5); Neutrophil # 4.21 X10^3/uL (2.7-7.7); Neutrophil % 64.9 % (47-70); Platelet Count 222 K/mm3 (150-450); RBC Distribution Width CV 12.9 % (11.6-14.6); RBC Distribution Width SD 48.7 fl (35.1-43.9); White Blood Count 6.5 K/mm3 (4.4-11.0)
[2021-12-03] MEDS: APIXABAN 2.5 MG TABLET PO ×2 (05:29→17:23)
[2021-12-03] MEDS: Ascorbic Acid 500 MG Tablet PO (05:29)
[2021-12-03 05:53] LABS: Anion Gap 4 (5-15); BUN 20 mg/dL (7-18); BUN/Creat Ratio 24.2 RATIO (10-20); Calcium,Total 8.5 mg/dL (8.5-10.1); Chloride 111 mmol/L (98-107); Creatinine, Serum 0.83 mg/dL (0.70-1.30); EST Glomerular Filtration Rate 95 mL/min (>60); Est Glom Filt Rate - Afr Amer 116 mL/min (>60); Estimated Creatinine Clearance 78.78 ml/min; Glucose 84 mg/dL (74-106); Potassium 4.1 mmol/L (3.5-5.1); Sodium Level 141 mmol/L (136-145)
--- NOTE | 2021-12-03 07:58 | DS.PCM_ITS ---
Providers Date of Admission: 11/11/21 Primary Care Physician: Dr. Luis Castillo MD Consultations 11/20/21 02:00 Consult: Urology Routine Consulting Provider: Bright Lee Reason for Consult: Severe Hydronephrosis of right kidney; Kidney stone 10mm EMERGENT Consult: Yes MD Notified: Yes Date Notified: 11/20/21 Time Notified: 02:00 Method of Notification: phonecall Reason For Visit: [place], RIGHT PELVIS FRX Diagnosis Discharge Diagnosis (1) Kidney stone on right side: Status: Inactive Code(s): N20.0 - Calculus of kidney (2) Hydronephrosis of right kidney: Status: Inactive Code(s): N13.30 - Unspecified hydronephrosis Plan 76 year old male with below past medical history hospitalized for right hip fracture, right pelvis fracture, surgery not recommended, admitted to TCU with debility, here for rehabilitation, strengthening, prior to discharge home alone. * Debility - PT/OT. * Pain - Tylenol 1000mg q6h prn pain (1-3), Tramadol 50mg q6h prn pain (4-5), Oxycodone 5mg q4h prn pain (6-10). * Bowel - Senna/colace 2 tablets bid, Dulcolax 10mg daily prn. * Adult immunization - Administer pneumonia vaccine, covid19 vaccine, flu vaccine as appropriate. * DVT prophylaxis - Eliquis 2.5mg bid thru 12/15/2021. * Hypertension - Amlodipine 5mg daily. * Vitamin C deficiency - Vitamin C 500mg daily. * Nutrition - MVI daily. 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 * Lung cancer - Treated with radiation, chemotherapy. 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 * BPH/urinary retention - Rx Tamsulosin 0.4mg daily, straight cath prn. Medications at Discharge Home Medications ascorbic acid (vitamin C) 500 mg tablet 500 mg PO DAILY Supplement 12/07/14 multivitamin with folic acid 400 mcg tablet 1 tab PO DAILY Supplement 12/07/14 amlodipine 5 mg tablet 1 tab PO DAILY BP 11/10/21 apixaban 2.5 mg tablet 2.5 mg PO BID Anti Coagulant 11/11/21 Emollient Combination No.72 [Eucerin Intensive Repair] 1 applic topical BID ##0 12/03/21 acetaminophen 500 mg tablet 1,000 mg PO Q6H PRN PRN Pain Score 1-3 #0 tabs bisacodyl 5 mg tablet,delayed release 10 mg PO DAILY PRN Constipation #0 tabs 12/03/21 calcium carbonate 200 mg calcium (500 mg) chewable tablet 1,000 mg PO Q4H PRN PRN Indigestion #0 tabs 12/03/21 clotrimazole-betamethasone 1 %-0.05 % topical cream 1 applic topical BID #0 grams 12/03/21 mirtazapine 15 mg tablet 7.5 mg PO QHS #0 tabs 12/03/21 oxycodone 5 mg tablet 5 mg PO Q6H PRN Pain 3 days #12 tabs 12/03/21 sennosides 8.6 mg-docusate sodium 50 mg tablet (Stool Softener-Stimulant L axative) 2 tab PO BID #0 tabs 12/03/21 tamsulosin 0.4 mg capsule 0.4 mg PO DAILY@1730 #0 caps 12/03/21 temazepam 15 mg capsule (Restoril) 15 mg PO QHS 3 days #3 caps 12/03/21 tramadol 50 mg tablet 50 mg PO Q6H PRN PRN Pain Score 4-5 3 days #12 tabs 12/03/21 Hospital Course Operations - (Cystoscopy, right ureteral stent placement, retrograde pyelogram.) Procedures None Summary of Care Provided Minutes Spent on Discharge: 35 Hospital Course: 76 year old male with below past medical history hospitalized for right hip fracture, right pelvis fracture, surgery not recommended, admitted to TCU with debility, here for rehabilitation, strengthening, prior to discharge home alone. 11/21/2021 Dr. Lee performed cystoscopy, right ureteral stent placement, retrograde pyelogram. Discharge to [facility] 12/05/2021, intermediate level of care. Physical Exam Const alert General Appearance: cooperative HEENT normocephalic Eyes PERRL and EOMs intact bilaterally Neck supple, no JVD and no carotid bruits Resp normal respiratory effort, normal air movement and clear to auscultation bilaterally Cardio regular rate and regular rhythm GI normal to inspection, nondistended, normoactive bowel sounds, non-tender and non-distended Extremity normal capillary refill General Extremity: Negative for edema Skin no rashes or lesions noted General Skin Exam: no breakdown Psych affect normal Appearance: appropriate Weight / BMI Weight Weight: 75.931 kg ABG / Lab / Microbiology Data Result Diagrams: 12/03/21 05:08 12/03/21 05:08 Laboratory: Laboratory Results - last 24 hr 12/03/21 05:08: WBC 6.5, RBC 3.70 L, Hgb 11.8 L, Hct 38.2 L, MCV 103.2 H, MCH 31.9, MCHC 30.9 L, RDW Std Deviation 48.7 H, RDW Coeff of Roberto 12.9, Plt Count 222, MPV 9.9, Immature Gran % (Auto) 0.500, Neut % (Auto) 64.9, Lymph % (Auto) 17.6 L, Morrill % (Auto) 9.7, Eos % (Auto) 6.2 H, Baso % (Auto) 1.1 H, Absolute Neuts (auto) 4.2, Absolute Lymphs (auto) 1.14, Nucleated RBC % 0 12/03/21 05:08: Sodium 141, Potassium 4.1, Chloride 111 H, Carbon Dioxide 26.0, Anion Gap 4 L, BUN 20 H, Creatinine 0.83, Estim Creat Clear Calc 78.78, Est GFR (MDRD) Af Amer 116, Est GFR (MDRD) Non-Af 95, BUN/Creatinine Ratio 24.2 H, Glucose 84, Calcium 8.5 Microbiology: Microbiology 11/25/21 08:00 Nasal Secretion SARS-CoV-2 Antigen (Rapid) - Final 11/18/21 05:40 Nasal Secretion SARS-CoV-2 Antigen (Rapid) - Final 11/11/21 18:44 Nasal Secretion SARS-CoV-2 Antigen (Rapid) - Final D/C Instructions Discharge Diet: No restrictions Discharge Activity: Return to Normal Activity, May Shower and Use Walker Weight Bearing Status: Toe touch weight bearing (Right lower extremity.) Call your doctor if you observe: Fever of 101 or Higher, Inability to urinate, Inability to have a bowel movement, Shortness of breath, Dizziness, Fainting spells, Swelling in the ankles, Chest pain and Uncontrolled pain Additional Instructions: Discharge to [facility] 12/05/2021, intermediate level of care. Please Follow Up With: Dr. Daren Lazar When: As scheduled. Meaningful Use Info Meaningful Use Diagnoses (Choose all that apply): None applicable Discharge Plan Admission Admit Date/Time: 11/11/21 18:24 Primary Reason for Your Visit: Debility. Attending Provider: Anthony Sorenson Chi Primary Care Provider: Luis Castillo Consulting Providers: Bright Lee Instructions Additional Instructions / Restrictions: Pelvis xray min 3 views week of Jan 06 Dr office will review xrays and contact you if they need to see you. Discharge to [facility] 12/05/2021, intermediate level of care. Discharge Orders/Prescriptions Prescriptions: New acetaminophen 500 mg Tablet 1,000 mg PO Q6H PRN PRN (Reason: Pain Score 1-3) Qty: 0 0RF bisacodyl 5 mg Tablet,Delayed Release (Dr/Ec) 10 mg PO DAILY PRN (Reason: Constipation) Qty: 0 0RF calcium carbonate 200 mg calcium (500 mg) Tablet,Chewable 1,000 mg PO Q4H PRN PRN (Reason: Indigestion) Qty: 0 0RF sennosides-docusate sodium [Stool Softener-Stimulant Laxat] 8.6-50 mg Tablet 2 tab PO BID Qty: 0 0RF tamsulosin 0.4 mg Capsule 0.4 mg PO DAILY@1730 Qty: 0 0RF clotrimazole-betamethasone 1-0.05 % Cream 1 applic topical BID Qty: 0 0RF Protocol: *Topical Application Instructions APPLICATION INSTRUCTIONS: Affected area mirtazapine 15 mg Tablet 7.5 mg PO QHS Qty: 0 0RF Emollient Combination No.72 [Eucerin Intensive Repair] 1 applic topical BID Qty: 0 0RF tramadol 50 mg Tablet 50 mg PO Q6H PRN PRN (Reason: Pain Score 4-5) 3 Days Qty: 12 0RF Continued ascorbic acid (vitamin C) 500 MG tablet 500 mg PO DAILY multivitamin with folic acid 1 TABLET tablet 1 tab PO DAILY amlodipine 5 mg tablet 1 tab PO DAILY Label Comments: take 1 tablet by mouth once daily apixaban 2.5 mg Tablet 2.5 mg PO BID temazepam [Restoril] 15 mg capsule 15 mg PO QHS 3 Days Qty: 3 0RF oxycodone 5 mg Tablet 5 mg PO Q6H PRN (Reason: Pain) 3 Days Qty: 12 0RF Discontinued sennosides-docusate sodium [Senna with Docusate Sodium] 8.6-50 mg Tablet 2 tab-cap PO DAILY tamsulosin [Flomax] 0.4 mg Capsule 0.4 mg PO 1730 methylprednisolone [Medrol (Keon)] 4 mg Tablets,Dose Pack 4 mg PO BID Rx Instructions: dose pack 7/6 BID and then 7/7 4 mg x1 Referrals / Follow Up: Luis Castillo MD [Primary Care Provider] - Disposition Disposition (needs filled in before D/C Order can be placed): NonSkilled NH/Intermed Care
[2021-12-03] MEDS: Multivitamins,Therapeutic Tablet 1 TABLET PO (08:37)
[2021-12-03] MEDS: oxyCODONE 5 MG Tablet PO (13:04)
[2021-12-03 15:49] VITALS: BP 107/60; PULSE 71; RESP 18; TEMP 36.8; O2SAT 96
--- NOTE | 2021-12-03 16:19 | CASEMGMT ---
Social Work Brief interview for mental status (BIMS) and resident mood interview (PHQ-9) completed on this day. BIMS score . PHQ-9 score . Lydia YARBROUGH, ALBAROS
[2021-12-03] MEDS: Tamsulosin HCl 0.4 MG Capsule PO (17:23)
[2021-12-03] MEDS: Clotrimazole/Betamethasone 1 Tube 1 APPLIC TOPICAL (17:24)
[2021-12-03] MEDS: Mirtazapine 15 MG Tablet 7.5 MG PO (20:26)
[2021-12-03] MEDS: Temazepam 15 MG Capsule PO (20:26)
[2021-12-04] MEDS: APIXABAN 2.5 MG TABLET PO ×2 (05:44→17:44)
[2021-12-04] MEDS: amLODIPine 5 MG Tablet PO (05:45)
[2021-12-04] MEDS: Ascorbic Acid 500 MG Tablet PO (05:45)
[2021-12-04] MEDS: Clotrimazole/Betamethasone 1 Tube 1 APPLIC TOPICAL ×2 (05:45→21:59)
[2021-12-04 05:46] VITALS: BP 103/53; PULSE 65
[2021-12-04] MEDS: Multivitamins,Therapeutic Tablet 1 TABLET PO (07:54)
--- NOTE | 2021-12-04 10:44 | CASEMGMT ---
Social Work Completed [facility]. Faxed [facility] and PA paperwork to [facility]. Scheduled cot transport through [facility] for 1100 p/u on DC 12/05. ZENON SchulteW
[2021-12-04] MEDS: Acetaminophen 500 MG Tablet 1000 MG PO (12:04)
[2021-12-04] MEDS: oxyCODONE 5 MG Tablet PO (12:04)
--- NOTE | 2021-12-04 13:51 | NURSING ---
Pt is self POA. Notified of staff member testing positive. Does not have to go into isolation.
[2021-12-04 15:03] VITALS: BP 102/63; PULSE 71; RESP 18; TEMP 36.4; O2SAT 96
[2021-12-04] MEDS: Tamsulosin HCl 0.4 MG Capsule PO (17:43)
[2021-12-04] MEDS: Mirtazapine 15 MG Tablet 7.5 MG PO (20:49)
[2021-12-04] MEDS: Temazepam 15 MG Capsule PO (20:50)
[2021-12-05 06:10] VITALS: BP 131/59; PULSE 60
[2021-12-05] MEDS: Ascorbic Acid 500 MG Tablet PO (06:12)
[2021-12-05] MEDS: amLODIPine 5 MG Tablet PO (06:12)
[2021-12-05] MEDS: APIXABAN 2.5 MG TABLET PO (06:12)
[2021-12-05] MEDS: Senna/Docusate Sodium 1 Tablet 2 TABLET PO (06:12)
[2021-12-05] MEDS: Multivitamins,Therapeutic Tablet 1 TABLET PO (07:59)
[2021-12-05 08:00] VITALS: BP 110/60; PULSE 62; RESP 16; TEMP 36.7; O2SAT 96
[2021-12-05 10:00] VITALS: PULSE 62; RESP 16; O2SAT 96
== END 2021-12-05 11:45 | DRG 560 ==
PROVIDERS: Admitting Provider Family Medicine Geriatric Medicine; PCP Internal Medicine; Visit Provider Family Medicine Geriatric Medicine
DX: S72.001D Fracture of unspecified part of neck of right femur, subsequent encounter for closed fracture with routine healing (principal); G32.81 Cerebellar ataxia in diseases classified elsewhere; C34.90 Malignant neoplasm of unspecified part of unspecified bronchus or lung; N13.2 Hydronephrosis with renal and ureteral calculous obstruction; F17.210 Nicotine dependence, cigarettes, uncomplicated; I10 Essential (primary) hypertension; W19.XXXD Unspecified fall, subsequent encounter; N40.1 Benign prostatic hyperplasia with lower urinary tract symptoms; S32.9XXD Fracture of unspecified parts of lumbosacral spine and pelvis, subsequent encounter for fracture with routine healing; R33.8 Other retention of urine; Z79.899 Other long term (current) drug therapy; Z79.01 Long term (current) use of anticoagulants; Z23 Encounter for immunization
CPT/HCPCS: 0004A; 36415; 74018; 80048; 85025; 87426; 87811; 91300; 97110; 97162; 97166; 97530; 97535; 97542; 97802; G0009; 90670

== ENCOUNTER 2021-11-19 20:26 | Emergency (ER) | payer MEDICARE, SELFPAY ==
[2021-11-19 20:26] VITALS: BP 119/79; PULSE 103; RESP 15; TEMP 36.8; O2SAT 99; BMI 23.0
[2021-11-19 21:16] LABS: Lactic Acid 2.1 mmol/L (0.4-1.9)
[2021-11-19 21:20] LABS: Absolute Lymphocyte Count 1.12 X10^3/uL (0.83-4.51); Absolute Neutrophil Count 11.6 X10^3/uL (2.0-7.7); Basophil# 0.02 X10^3/uL; Basophil% 0.1 % (0-1); Hematocrit 43.7 % (40-54); Hemoglobin 14.7 g/dL (13.0-16.5); Lymphocyte # 1.12 X10^3/ul (0.83-4.51); Lymphocyte % 7.9 % (19-41); Mean Corp Hgb Conc 33.6 g/dL (32-36); Mean Corpuscular Hgb 32.2 pg (27.0-32.0); Mean Corpuscular Volume 95.6 fL (80-94); Mean Platelet Vol. 10.6 fl (6.2-12.0); Monocyte# 1.34 X10^3/uL; Monocyte% 9.5 % (0-10); NRBC Flagged by Analyzer 0 % (0-5); Neutrophil # 11.62 X10^3/uL (2.7-7.7); Neutrophil % 82.1 % (47-70); Platelet Count 324 K/mm3 (150-450); RBC Distribution Width CV 13.2 % (11.6-14.6); RBC Distribution Width SD 46.3 fl (35.1-43.9); Red Blood Count 4.57 M/mm3 (4.6-6.2); White Blood Count 14.2 K/mm3 (4.4-11.0)
--- NOTE | 2021-11-19 21:28 | CT_ITS ---
INDICATION: abdominal pain EXAMINATION: CT Abdomen And Pelvis W/ Contrast Injection TECHNIQUE: Helically acquired images were obtained of the abdomen and pelvis following IV contrast. 2-D reconstructions reviewed. A radiation dose optimization technique was used for this scan. IV Contrast dosage and agent: 100 mL [id number]-370 Oral contrast: None. COMPARISON: Unenhanced CT pelvis from 11/10/[address] abdomen and pelvis from 10/13/2019. FINDINGS: LOWER CHEST: No acute findings within the imaged lung bases. Heart size within normal limits. Coronary arterial calcifications again noted. LIVER: Homogeneous. No concerning lesion. GALLBLADDER AND BILIARY TREE: No calcified gallstones identified. No gallbladder wall edema demonstrated. No significant biliary ductal dilation. PANCREAS: Somewhat atrophic with no discrete mass or peripancreatic edema. SPLEEN: Normal size without focal cystic or solid mass. ADRENAL GLANDS: Unremarkable. KIDNEYS AND URETERS: Edematous right kidney with severe hydronephrosis and moderate hydroureter secondary to 10 mm craniocaudal length and 8 mm axial diameter calcified stone within distal ureter located at level of right internal iliac artery aneurysm. Essentially unchanged position of right ureteral stone compared with recent CT pelvis. Couple small low-attenuation simple appearing left renal cyst requiring no additional follow-up, largest measuring 1.3 cm. No left obstructive uropathy. PERITONEUM: No peritoneal free air or significant free fluid. No other fluid collection. RETROPERITONEUM: No retroperitoneal mass or pathologic fluid collection. BOWEL: No evidence of acute appendicitis. No abnormal stomach or bowel distension. Distal colonic diverticulosis. No focal inflammatory change. LYMPH NODES: No enlarged mesenteric or retroperitoneal lymph nodes. VESSELS: Generalized atherosclerotic plaque. Mildly ectatic abdominal aorta again noted, measuring up to 3 cm AP diameter at mid infrarenal segment. 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 No evidence of aneurysm rupture or leakage. URINARY BLADDER: Trace amount of gas within bladder lumen likely secondary to recent instrumentation/catheterization. No significant bladder wall thickening detected. REPRODUCTIVE ORGANS: No pelvic masses. ABDOMINAL WALL: Small left inguinal fat hernia. BONES: Stable appearance of complex right acetabular fracture involving acetabular roof, anterior column, posterior column and medial wall. No hip dislocation. Stable mildly comminuted and partially displaced right inferior pubic ramus fracture. No widening of pubic symphysis. Chronic L5 vertebral body compression deformity again noted. CT/Abdomen/Pelvis W IV Cont ONLY IMPRESSION: 1. High-grade right obstructive uropathy secondary to 10 mm distal ureteral stone. Stone located at level of chronic right internal iliac artery aneurysm, possibly mass effect from aneurysm resulting in impaired passage and mobility of stone. 2. Stable complex right acetabular fracture pattern and partially displaced right inferior pubic ramus fracture. 3. Other nonurgent findings within body of report. Electronically Signed: Sina Gama MD at 23:08 EDT ,
--- NOTE | 2021-11-19 21:29 | ED.VIS.GI ---
HPI HPI - GI History of Present Illness Chief Complaint: Abd Pain Narrative Narrative: 76-year-old male presenting from the TCU for evaluation. He states he has not been very hungry today or eating. He states apparently one of the nurses must of told the doctor and they sent him over for a KUB and it showed what was concerning for a bowel obstruction. The patient states he does not currently have any pain or nausea. He does not report a fever. Patient states that he had some right lower pelvic pain earlier today which comes and goes. He has associated nausea vomiting at times. I saw the patient a week ago for an acetabular fracture which was transferred into [facility]. He is currently residing in the PCU for recovery. [facility] Medical History Closed right hip fracture Hypertension Insomnia Lung cancer Paraneoplastic cerebellar ataxia Pelvis fracture, right Home Medications ascorbic acid (vitamin C) 500 mg tablet 500 mg PO DAILY Supplement 12/07/14 [History Last Taken Unknown] multivitamin with folic acid 400 mcg tablet 1 tab PO DAILY Supplement 12/07/14 [History Last Taken Unknown] amlodipine 5 mg tablet 1 tab PO DAILY BP 11/10/21 [History Last Taken Unknown] temazepam 15 mg capsule (Restoril) 15 mg PO QHS PRN sleep 11/10/21 [History Last Taken Unknown] apixaban 2.5 mg tablet 2.5 mg PO BID Anti Coagulant 11/11/21 [History Last Taken Unknown] oxycodone 5 mg tablet 5 mg PO Q6H PRN Pain 11/11/21 [History Last Taken Unknown] Allergy/AdvReac Type Severity Reaction Status Date / Time No Known Allergies Allergy Verified 11/19/21 20:28 Family History Father Myocardial infarction Brother Shanice Gehrig disease Social History household members: none Smoking Status: Current every day smoker tobacco type: cigarettes alcohol intake: current alcohol intake frequency: holidays/special occasions only Alcohol type: beer substance use type: does not use what type of physical activity do you participate in: none ROS ROS ED Constitutional Constitutional ED: Denies chills or fever(s) ENT ENT ED: Denies rhinorrhea or sore throat Cardiovascular Cardiovascular: Denies chest pain or palpitations Respiratory/Chest Respiratory/Chest: Denies cough or dyspnea Gastrointestinal Gastrointestinal: Reports abdominal pain and nausea Genitourinary Genitourinary ED: Denies dysuria or hematuria Musculoskeletal Musculoskeletal: Denies arthralgias Neurologic Neurologic: Denies headache(s) Psychiatric Psychiatric: Denies anxiety or depression EXAM Physical Exam Const Vital Signs: 11/19/21 20:26 11/19/21 22:20 Temperature 98.2 F Temperature Source Temporal Pulse Rate 103 H 75 Respiratory Rate 15 18 Blood Pressure 119/79 132/75 H Blood Pressure Mean 92 94 Pulse Ox 99 99 Oxygen Delivery Method Room Air Room Air Positive well nourished General Appearance ED: NAD; Negative for pallor HEENT Reports moist mucous membranes normocephalic Eyes PERRL and EOMs intact bilaterally Neck no lymphadenopathy Resp normal respiratory effort and clear to auscultation bilaterally Cardio regular rate Rate: tachycardic GI non-tender, non-distended and no masses Neuro CN's II-XII intact bilaterally Sensorium / Orientation: alert Motor Exam: strength 5/5 throughout Psych mental status grossly normal Skin General Skin Exam: Negative for jaundice or pallor MDM MDM MDM Narrative Medical decision making narrative: NovaBlood work shows that his white blood cell count is increasing to 14.2. Hemoglobin is stable. Creatinine appears to be normal. Lactic acid 2.1. Mild elevation of liver enzymes which is nonspecific. Patient was given IV fluids and Zofran. He is not having any pain currently but he did have an episode of vomiting. I obtain a CT of the abdomen pelvis with IV contrast which shows a high-grade obstructive uropathy due to a 10 mm ureteral stone it is located at the level of a chronic internal iliac artery aneurysm which may be obstructing the passage of the stone. It also notes that he has a stable acetabular fracture. He states that after going to [facility] he was told he was just going to have to let it heal. No surgery was performed. There is no urology on-call here today. He does have a history of kidney stones he states in the past about a year and a half ago but he never followed up with urology he has not established. Given this I will need to transfer him and likely will need to ask him a since he was just there. It is noted on the CT scan that the stone was there prior to his transfer to [facility] on his last visit. This was not addressed. Attempted to transfer the patient to [facility] as he was recently there. They state that there is lability and they are boarding people in the emergency room. We are attempting to call around to other facilities to obtain a transfer since we do not have urology here. Patient has been medically stable although he has a worsening leukocytosis and intermittent pain where his kidney stone is located. He also has hydronephrosis. There is some concern that this is located near an iliac aneurysm which is chronic but may be obstructing the stone. Urinalysis is pending. Urine culture was sent. Patient was signed out to incoming ED physician for monitoring until transfer can be obtained. Impression: 1. 10 mm distal ureteral stone64 2. Leukocytosis 3. Flank pain 4. Nausea/vomiting Lab Data Attestation: I reviewed the patient's lab results. Labs: Laboratory Results - last 24 hr 11/19/21 11/19/21 11/19/21 20:30 20:30 20:30 WBC 14.2 H RBC 4.57 L Hgb 14.7 Hct 43.7 MCV 95.6 H MCH 32.2 H MCHC 33.6 RDW Std Deviation 46.3 H RDW Coeff of Roberto 13.2 Plt Count 324 MPV 10.6 Immature Gran % (Auto) 0.400 Neut % (Auto) 82.1 H Lymph % (Auto) 7.9 L [place] % (Auto) 9.5 Eos % (Auto) 0.0 Baso % (Auto) 0.1 Absolute Neuts (auto) 11.6 H Absolute Lymphs (auto) 1.12 Nucleated RBC % 0 Sodium 139 Potassium 4.5 Chloride 103 Carbon Dioxide 28.0 Anion Gap 8 BUN 27 H Creatinine 1.16 Estim Creat Clear Calc 57.24 Est GFR (MDRD) Af Amer 78 Est GFR (MDRD) Non-Af 65 BUN/Creatinine Ratio 23.3 H Glucose 111 H Lactic Acid 2.1 H* Calcium 9.2 Total Bilirubin Direct Bilirubin AST ALT Alkaline Phosphatase Total Protein Albumin Globulin Lipase 11/19/21 20:30 WBC RBC Hgb Hct MCV MCH MCHC RDW Std Deviation RDW Coeff of Roberto Plt Count MPV Immature Gran % (Auto) Neut % (Auto) Lymph % (Auto) [place] % (Auto) Eos % (Auto) Baso % (Auto) Absolute Neuts (auto) Absolute Lymphs (auto) Nucleated RBC % Sodium Potassium Chloride Carbon Dioxide Anion Gap BUN Creatinine Estim Creat Clear Calc Est GFR (MDRD) Af Amer Est GFR (MDRD) Non-Af BUN/Creatinine Ratio Glucose Lactic Acid Calcium Total Bilirubin 0.70 Direct Bilirubin 0.27 AST 31 ALT 78 H Alkaline Phosphatase 169 H Total Protein 7.3 Albumin 3.4 Globulin 3.9 Lipase 73 Radiography Diagnostic Testing: Clinical Impression(s) from Imaging Studies Abdomen/Pelvis CT 11/19/21 21:28 IMPRESSION: 1. High-grade right obstructive uropathy secondary to 10 mm distal ureteral stone. Stone located at level of chronic right internal iliac artery aneurysm, possibly mass effect from aneurysm resulting in impaired passage and mobility of stone. 2. Stable complex right acetabular fracture pattern and partially displaced right inferior pubic ramus fracture. 3. Other nonurgent findings within body of report. Electronically Signed: Sina Gama MD at 23:08 EDT , Discharge Plan Triage Chief Complaint: Abd Pain ED Provider: Teja Ty Dx/Rx/DC Orders Prescriptions: No Action ascorbic acid (vitamin C) 500 MG tablet 500 mg PO DAILY multivitamin with folic acid 1 TABLET tablet 1 tab PO DAILY amlodipine 5 mg tablet 1 tab PO DAILY Label Comments: take 1 tablet by mouth once daily temazepam [Restoril] 15 mg capsule 15 mg PO QHS PRN (Reason: sleep) oxycodone 5 mg Tablet 5 mg PO Q6H PRN (Reason: Pain) apixaban 2.5 mg Tablet 2.5 mg PO BID Primary Care Provider: Luis Castillo Referrals: Luis Castillo MD [Primary Care Provider] -
[2021-11-19 22:07] LABS: AST(SGOT) 31 U/L (15-37); Alanine Aminotransfer ALT/SGPT 78 U/L (16-61); Albumin, Serum 3.4 g/dL (3.2-5.0); Alkaline Phosphatase 169 U/L (45-117); Bilirubin, Direct 0.27 mg/dL (0.00-0.30); Globulin 3.9 g/dL (2.2-4.2); Lipase 73 U/L (73-393); Protein, Total 7.3 g/dL (6.4-8.2)
--- NOTE | 2021-11-19 22:09 | ED.RN ---
PT HAS MODERATE AMOUNT OF EMESIS AT THIS TIME. CLEAR IN COLOR.
[2021-11-19] MEDS: 0.9% Normal Saline 1,000 ML 999 ML IV (22:19)
[2021-11-19] MEDS: Ondansetron 4 MG/2 ML Vial IV (22:19)
[2021-11-19 22:20] VITALS: BP 132/75; PULSE 75; RESP 18; O2SAT 99
[2021-11-19 22:33] LABS: Anion Gap 8 (5-15); BUN 27 mg/dL (7-18); BUN/Creat Ratio 23.3 RATIO (10-20); Calcium,Total 9.2 mg/dL (8.5-10.1); Chloride 103 mmol/L (98-107); Creatinine, Serum 1.16 mg/dL (0.70-1.30); EST Glomerular Filtration Rate 65 mL/min (>60); Est Glom Filt Rate - Afr Amer 78 mL/min (>60); Estimated Creatinine Clearance 57.24 ml/min; Glucose 111 mg/dL (74-106); Potassium 4.5 mmol/L (3.5-5.1); Sodium Level 139 mmol/L (136-145)
[2021-11-19 23:34] LABS: Squamous Epithelial Cells - UA 0 SEEN /hpf (0-5)
[2021-11-20 00:13] LABS: Color, Urine Yellow (Yellow); Glucose, Dipstick Normal (Normal); Ketone-Dipstick Negative (Negative); Leukocyte Esterase-Dipstick Negative /ul (Negative); Nitrite-Dipstick Negative (Negative); Occult Blood-Urine 250 /ul (Negative); Protein-Dipstick Negative (Negative); Specific Gravity, Urine 1.015 (1.002-1.030); Urine Bilirubin Dipstick Negative (Negative); Urine Clarity Clear (Clear); Urine Urobilinogen Normal (Normal)
[2021-11-20 00:26] LABS: Bacteria RARE /hpf (None Seen); Mucous, Urine RARE /hpf (<or=2+); Red Blood Cells-Urine 25-50 SEEN /hpf (0-5); White Blood Cells 0-5 SEEN /hpf (0-5)
[2021-11-20 01:00] LABS: Reflex Lactate? Y
[2021-11-20 01:18] VITALS: BP 132/96; PULSE 64; RESP 16; O2SAT 94
== END 2021-11-20 01:41 | disposition skilled nursing facility (03) ==
PROVIDERS: Emergency Provider Student in an Organized Health Care Education/Training Program; PCP Internal Medicine; Visit Provider Student in an Organized Health Care Education/Training Program
DX: N13.2 Hydronephrosis with renal and ureteral calculous obstruction (principal); I72.3 Aneurysm of iliac artery; I10 Essential (primary) hypertension; F17.210 Nicotine dependence, cigarettes, uncomplicated; Z79.899 Other long term (current) drug therapy; Z87.442 Personal history of urinary calculi
CPT/HCPCS: 51702; 74177; 80048; 80076; 81001; 83605; 83690; 85025; 87086; 96361; 96374; 99283; J7030; Q9967; A4216; J2405

== ENCOUNTER 2021-11-21 10:22 | Day surgery (SDC) | payer MEDICARE, SELFPAY ==
[2021-11-21] VITALS (8 sets, daily range): BP systolic 94–136; BP diastolic 63–71; PULSE 58–70; RESP 15–18; TEMP 36.4–37.2; O2SAT 93–97; BMI 22.4
[2021-11-21] MEDS: Lactated Ringers 1,000 ML 15 ML IV (10:30)
[2021-11-21] MEDS: Cefazolin 1 GM/50 ML BAG IV (10:35)
--- NOTE | 2021-11-21 10:43 | EKG12_ITS ---
Test Reason : PRE OP Blood Pressure : / mmHG Vent. Rate : 069 BPM Atrial Rate : 069 BPM P-R Int : 164 ms QRS Dur : 090 ms QT Int : 424 ms P-R-T Axes : 061 -25 071 degrees QTc Int : 454 ms Normal sinus rhythm Leftward axis Low voltage QRS (Limb Leads) Confirmed by LASHONDA CODY, ELLIOT ([id number]), editor producer ZAKIA CANELA ([id number]) on 11/25/2021 10:41:54 AM Referred By: Bright Lee Confirmed By:ELLIOT GALLEGO MD
[2021-11-21] MEDS: Lubricating Jelly 60 GM Tube 30 GM (10:51)
[2021-11-21] MEDS: Lidocaine Jelly 2% 20 ML Syringe (URO-JET) 1 APPLIC (12:08)
== END 2021-11-21 14:06 | disposition home or self-care (01) ==
LOC: SDC 10:28 → AC 10:28
PROVIDERS: PCP Internal Medicine; Referring Provider Urology; Visit Provider Urology
PROC: (CPT 52332; principal; 2021-11-21 11:50)
DX: N13.2 Hydronephrosis with renal and ureteral calculous obstruction (principal); I10 Essential (primary) hypertension; F17.210 Nicotine dependence, cigarettes, uncomplicated; Z79.01 Long term (current) use of anticoagulants; Z79.899 Other long term (current) drug therapy
CPT/HCPCS: 52332; 00910; 76000; 93005; J7120; C1769; C2617; J2405

== ENCOUNTER 2021-12-18 10:08 | Day surgery (SDC) | payer MEDICARE, SELFPAY ==
[2021-12-18 10:40] VITALS: BP 114/71; PULSE 78; RESP 16; TEMP 36.4; O2SAT 98; BMI 22.6
[2021-12-18] MEDS: Lactated Ringers 1,000 ML 15 ML IV (10:47)
--- NOTE | 2021-12-18 12:31 | PCM.HP.STD ---
HPI - General General Date of Admission: 12/18/21 Date of Service: 12/18/21 Chief Complaint: Right ureteral calculi status post stent HPI Narrative SUMEET QUIGLEY, is a 76 M who presents for treatment of a distal right ureteral calculi causing obstruction he had a stent placed. [facility] Medical History (Updated 12/13/21 @ 10:40 by Shakira Amaya) Arthritis Closed right hip fracture Former smoker History of steroid therapy Hypertension Insomnia Lung cancer long term resident Paraneoplastic cerebellar ataxia Pelvis fracture, right Uses wheelchair Wears glasses Wears partial dentures Home Medications ascorbic acid (vitamin C) 500 mg tablet 500 mg PO DAILY Supplement 12/07/14 [History Last Taken Unknown] multivitamin with folic acid 400 mcg tablet 1 tab PO DAILY Supplement 12/07/14 [History Last Taken Unknown] amlodipine 5 mg tablet 1 tab PO DAILY BP 11/10/21 [History Last Taken Unknown] apixaban 2.5 mg tablet 2.5 mg PO BID Anti Coagulant 11/11/21 [History Last Taken Unknown] Emollient Combination No.72 [Eucerin Intensive Repair] 1 applic topical BID ##0 12/03/21 [Rx Last Taken Unknown] acetaminophen 500 mg tablet 1,000 mg PO Q6H PRN PRN Pain Score 1-3 #0 tabs 12/03/21 [Rx Last Taken Unknown] bisacodyl 5 mg tablet,delayed release 10 mg PO DAILY PRN Constipation #0 tabs 12/03/21 [Rx Last Taken Unknown] calcium carbonate 200 mg calcium (500 mg) chewable tablet 1,000 mg PO Q4H PRN PRN Indigestion #0 tabs 12/03/21 [Rx Last Taken Unknown] clotrimazole-betamethasone 1 %-0.05 % topical cream 1 applic topical BID #0 grams 12/03/21 [Rx Last Taken Unknown] mirtazapine 15 mg tablet 7.5 mg PO QHS #0 tabs 12/03/21 [Rx Last Taken Unknown] sennosides 8.6 mg-docusate sodium 50 mg tablet (Stool Softener-Stimulant Laxative) 2 tab PO BID #0 tabs 12/03/21 [Rx Last Taken Unknown] tamsulosin 0.4 mg capsule 0.4 mg PO DAILY@1730 #0 caps 12/03/21 [Rx Last Taken Unknown] temazepam 15 mg capsule (Restoril) 15 mg PO QHS 3 days #3 caps 12/03/21 [Rx Last Taken Unknown] Allergy/AdvReac Type Severity Reaction Status Date / Time No Known Allergies Allergy Verified 12/18/21 10:38 Family History Father Myocardial infarction Brother Shanice Gehrig disease Surgical History (Updated 12/13/21 @ 10:40 by Shakira Amaya) History of cystoscopy History of cystoscopy Social History household members: none Smoking Status: Former smoker alcohol intake: current alcohol intake frequency: holidays/special occasions only Alcohol type: beer substance use type: does not use what type of physical activity do you participate in: none Vital Signs Vital Signs Vital Signs: 12/18/21 10:40 12/18/21 10:40 Temperature 97.6 F L Temperature Source Temporal Pulse Rate 78 Respiratory Rate 16 Respiratory Pattern Normal Blood Pressure 114/71 Blood Pressure Mean 85 Blood Pressure Source Monitor Blood Pressure Position Semi-Fowlers Blood Pressure Location Left Arm Pulse Ox 98 Oxygen Delivery Method Room Air Weight Weight: 75.75 kg Body Mass Index (BMI) 22.6
[2021-12-18] MEDS: Cefazolin 2 GM in 0.9% Normal Saline 100 ML IV (12:49)
--- NOTE | 2021-12-18 13:33 | DCINST_ITS ---
Discharge Instructions Diet Discharge Diet: No restrictions Activity Discharge Activity: Return to Normal Activity Follow Up Care Please Follow Up With: Bright Lee MD When: 2 weeks to remove stent Test Results: Test results from this visit will be discussed in further detail at your follow- up appointment, if applicable. Discharge Plan Admission Primary Reason for Your Visit: right ureteroscopy laser stone and stent Attending Provider: Bright Lee Primary Care Provider: Luis Castillo Discharge Orders/Prescriptions Prescriptions: New ciprofloxacin HCl [Cipro] 500 mg tablet 500 mg PO BID Qty: 10 0RF Continued ascorbic acid (vitamin C) 500 MG tablet 500 mg PO DAILY multivitamin with folic acid 1 TABLET tablet 1 tab PO DAILY amlodipine 5 mg tablet 1 tab PO DAILY Label Comments: take 1 tablet by mouth once daily apixaban 2.5 mg Tablet 2.5 mg PO BID acetaminophen 500 mg Tablet 1,000 mg PO Q6H PRN PRN (Reason: Pain Score 1-3) Qty: 0 0RF bisacodyl 5 mg Tablet,Delayed Release (Dr/Ec) 10 mg PO DAILY PRN (Reason: Constipation) Qty: 0 0RF calcium carbonate 200 mg calcium (500 mg) Tablet,Chewable 1,000 mg PO Q4H PRN PRN (Reason: Indigestion) Qty: 0 0RF sennosides-docusate sodium [Stool Softener-Stimulant Laxat] 8.6-50 mg Tablet 2 tab PO BID Qty: 0 0RF tamsulosin 0.4 mg Capsule 0.4 mg PO DAILY@1730 Qty: 0 0RF clotrimazole-betamethasone 1-0.05 % Cream 1 applic topical BID Qty: 0 0RF Protocol: *Topical Application Instructions APPLICATION INSTRUCTIONS: Affected area mirtazapine 15 mg Tablet 7.5 mg PO QHS Qty: 0 0RF Emollient Combination No.72 [Eucerin Intensive Repair] 1 applic topical BID Qty: 0 0RF temazepam [Restoril] 15 mg capsule 15 mg PO QHS 3 Days Qty: 3 0RF Referrals / Follow Up: Bright Lee MD [Med Staff - Active Staff] - Luis Castillo MD [Primary Care Provider] - Disposition Disposition (needs filled in before D/C Order can be placed): Home, Self Care
--- NOTE | 2021-12-18 13:34 | PCM.OPRPT ---
Report of Operation Date of Procedure: 12/18/21 Pre-Operative Diagnosis: Right mid ureteral calculi impacted Post-Operative Diagnosis: Same Surgery/Procedure Performed:: Cystoscopy, right retrograde pyelogram, right ureteroscopy laser lithotripsy of stone and stent placement interpretation fluoroscopic images, balloon dilation of the ureter. Description of Surgical Findings:: This is a patient who presents to the hospital for treatment for an obstructing distal ureter calculi. I discussed with the patient how the surgery would be performed and we reviewed the risks and benefits of the surgery. The risk and benefits include the risk of failure to remove the stone completely and that the patient may need multiple procedures. We discussed the risk of an infection, the risk of bleeding. We discussed the very rare risk of serious complicated injury to the ureter. The patient understands that if the stone is not able to be removed safely that we may abort the procedure and place a stent. After full discussion and all questions address with the patient the consent form was signed the side was marked appropriately and the patient was taken back to the operating room for the procedure. The patient was taken back to the operating room. After induction of anesthesia by the anesthesiology team the patient was placed in dorsolithotomy position. The genitals were prepped and draped in usual sterile fashion. I went into the bladder with a 21 Turkmen rigid cystourethroscope through the urethra. Upon entering the bladder I inspected the trigone the left and right ureteral orifice and the bladder itself. I then cannulated the Right ureteral orifice and advanced a 0.038 Glidewire up into the kidney. Then over the Glidewire I advanced a 5 Fr Ureteral catheter and performed a retrograde pyelogram with about 10cc of contrast, to delineate the anatomy and identify the stone location. Then a ureteral balloon dilator was advanced over the wire and the distal ureter was balloon dilated with a 12 Fr x 5cm balloon dilator. After 3 minutes of dilating the ureter the balloon was backloaded off the 0.038 glidewire then the safety wire was left in place. I then placed a second 0.038 Guidewire as a working wire and over the working 0.038 guidewire I went in with a Flexible 7.9fr ureteroscope. I was able to go inside with the 7.9Fr flexible utereroscope and I pulled out the working guidewire and then through the 7.9 fr flexible ureteroscope I ascended up the ureter with direct visualization until the stone was located, then I engaged the stone with laser lithotripsy using a 270miron laser fiber with energy setting of 6 Hertz and 0.6 J until the stone was lasered into tiny little pieces that should pass on their own. After successful laser lithotripsy of the stone and stone fragements, a retrograde pyelogram was performed with 10cc of contrast and no extravasation of contrast or perforation was identified in the ureter. I then backed out of the ureter left the wire in place and then over the 0.038 guidewire I placed a double coiled pigtail ureteral stent. The ureteral stent was advanced over the 0.038 guidewire under direct fluoroscopic guidance and direct cystoscopic visual guidance, once the stent was in good position I pulled the wire and the stent coiled in the kidney and bladder in good position. I then drained the patient's bladder and the cystoscope was removed and the patient was taken back to the recovery room in good position. The patient was given discharge instructions to call the office for instructions on when to come to the office to have the stent removed. Surgeon: Bright Lee Type of Anesthesia: General Drains: stent right
[2021-12-18 13:44] VITALS: BP 114/71; BP 128/69; PULSE 69; RESP 16; TEMP 36.5; O2SAT 96
[2021-12-18 14:00] VITALS: BP 114/71; BP 118/72; PULSE 72; RESP 16; O2SAT 97
[2021-12-18 14:12] VITALS: BP 109/73; BP 114/71; PULSE 71; RESP 16; TEMP 36.5; O2SAT 99
--- NOTE | 2021-12-18 14:56 | SUR.PHASEII ---
THIS NURSE CALLED [facility] AND GAVE REPORT TO THE NURSE. SHE STATES THAT THE PATIENT REQUIRES A WRITTEN PRESCRIPTION TO BE FILLED AT THEIR PHARMACY. PRESCRIPTION PRINTED OUT AND READIED FOR DR. RAMIREZ TO SIGN BEFORER PATIENT GOES HOME.
[2021-12-18 15:27] VITALS: BP 114/71; BP 117/66; PULSE 70; RESP 20; TEMP 36.2; O2SAT 96
== END 2021-12-18 16:07 | disposition home or self-care (01) ==
LOC: SDC 10:13 → AC 10:15
PROVIDERS: PCP Internal Medicine; Referring Provider Urology; Visit Provider Urology
PROC: 0TJ98ZZ Inspection of Ureter, Via Natural or Artificial Opening Endoscopic (ICD-10-PCS; CPT 52352; principal; 2021-12-18 12:15)
DX: N20.1 Calculus of ureter (principal); I10 Essential (primary) hypertension; Z79.899 Other long term (current) drug therapy; Z87.891 Personal history of nicotine dependence
CPT/HCPCS: 52356; 00918; 76000; J7120; C1758; C1769; C2617; J2405